=== PATIENT | female | born 1950 | race Caucasian/White ===

== ENCOUNTER → 2019-05-22 09:04 | Outpatient (BNVA) | payer MEDICARE, SELFPAY | PROVIDERS: Family Provider Nurse Practitioner; PCP Nurse Practitioner; Visit Provider Nurse Practitioner | DX: I10 Essential (primary) hypertension (principal); E78.5 Hyperlipidemia, unspecified; E03.8 Other specified hypothyroidism; E55.9 Vitamin D deficiency, unspecified; R25.2 Cramp and spasm | CPT/HCPCS: 80053; 80061; 82306; 84443; 85651 ==

== ENCOUNTER → 2019-08-18 14:21 | Outpatient (BNVA) | payer MEDICARE, SELFPAY | PROVIDERS: Family Provider Nurse Practitioner; PCP Nurse Practitioner; Visit Provider Orthopaedic Surgery | DX: M17.0 Bilateral primary osteoarthritis of knee (principal) | CPT/HCPCS: 73560; 73565 ==

== ENCOUNTER → 2019-08-20 10:20 | Outpatient (BNVA) | payer MEDICARE, SELFPAY | PROVIDERS: Family Provider Nurse Practitioner; PCP Nurse Practitioner; Visit Provider Nurse Practitioner | DX: I10 Essential (primary) hypertension (principal); E03.8 Other specified hypothyroidism; Z98.61 Coronary angioplasty status; J44.9 Chronic obstructive pulmonary disease, unspecified; M25.50 Pain in unspecified joint | CPT/HCPCS: 80053; 80061; 84443; 85025 ==

== ENCOUNTER → 2019-09-18 09:54 | Outpatient (BNVA) | payer MEDICARE, SELFPAY | PROVIDERS: Family Provider Nurse Practitioner; PCP Nurse Practitioner; Visit Provider Nurse Practitioner | DX: I10 Essential (primary) hypertension (principal); M25.50 Pain in unspecified joint | CPT/HCPCS: 80053 ==

== ENCOUNTER → 2019-11-16 09:18 | Outpatient (BNVA) | payer MEDICARE, SELFPAY | PROVIDERS: Family Provider Nurse Practitioner; PCP Nurse Practitioner; Visit Provider Nurse Practitioner | DX: K59.01 Slow transit constipation (principal); K59.09 Other constipation; E03.8 Other specified hypothyroidism; I10 Essential (primary) hypertension; J44.9 Chronic obstructive pulmonary disease, unspecified; Z98.61 Coronary angioplasty status; E78.2 Mixed hyperlipidemia; M25.50 Pain in unspecified joint; J30.89 Other allergic rhinitis; I25.10 Atherosclerotic heart disease of native coronary artery without angina pectoris; Z68.24 Body mass index [BMI] 24.0-24.9, adult; F17.210 Nicotine dependence, cigarettes, uncomplicated; Z71.89 Other specified counseling | CPT/HCPCS: 74018; 80053; 80061; 84443 ==

== ENCOUNTER → 2020-02-08 14:02 | Outpatient (BNVA) | payer MEDICARE, SELFPAY | PROVIDERS: Family Provider Nurse Practitioner; PCP Nurse Practitioner; Visit Provider Nurse Practitioner | DX: M25.511 Pain in right shoulder (principal) | CPT/HCPCS: 73030 ==

== ENCOUNTER → 2020-03-01 11:07 | Outpatient (BNVA) | payer MEDICARE, SELFPAY | PROVIDERS: Family Provider Nurse Practitioner; PCP Nurse Practitioner; Visit Provider Nurse Practitioner | DX: J44.9 Chronic obstructive pulmonary disease, unspecified (principal); I10 Essential (primary) hypertension; J30.89 Other allergic rhinitis | CPT/HCPCS: 80048 ==

== ENCOUNTER 2020-03-24 10:01 | Outpatient (CLI) | payer MEDICARE, SELFPAY ==
[2020-03-24 10:28] LABS: Basophils % 0.5 %; Eosinophils # 0.6 10^3/uL (0.0-0.8); Eosinophils % 8.1 %; Hematocrit 38.9 % (37.0-47.0); Hemoglobin 12.7 g/dL (11.5-15.3); Lymphocytes # 1.4 10^3/uL (0.8-4.8); Lymphocytes % 18.1 %; Mean Corpuscular HGB Conc 32.6 g/dL (30.0-36.0); Mean Corpuscular Hemoglobin 29.7 pg (28.0-34.0); Mean Corpuscular Volume 90.9 fL (81-99); Monocytes # 0.6 10^3/uL (0.2-0.9); Monocytes % 7.9 %; Nucleated Red Blood Cells % 0 %; Platelet Count 470 10^3/cmm (130-400); Red Blood Count 4.28 10^6/uL (4.1-5.3); Red Cell Distribution Width 13.2 % (12.1-15.1); White Blood Count 7.6 10^3/uL (4.0-10.0)
[2020-03-28 10:18] LABS: Immunoglobulin E 563 kU/L (<OR=114)
== END 2020-03-24 10:02 | disposition home or self-care (01) ==
PROVIDERS: PCP Nurse Practitioner; Visit Provider Internal Medicine Critical Care Medicine
DX: J45.909 Unspecified asthma, uncomplicated (principal); J44.9 Chronic obstructive pulmonary disease, unspecified; R06.02 Shortness of breath
CPT/HCPCS: 36415; 82785; 85025

== ENCOUNTER 2020-04-01 11:41 | Outpatient (CLI) | payer MEDICARE, SELFPAY | END 2020-04-01 11:42 | disposition home or self-care (01) | LOC: LAB 01-06 12:39 | PROVIDERS: PCP Family Medicine; Visit Provider Internal Medicine Critical Care Medicine | DX: J45.909 Unspecified asthma, uncomplicated (principal); Z20.828 Contact with and (suspected) exposure to other viral communicable diseases | CPT/HCPCS: 87635 ==

== ENCOUNTER 2020-04-06 08:48 | Outpatient (CLI) | payer MEDICARE, SELFPAY ==
--- NOTE | 2020-04-06 14:36 | PFTS_ITS ---
Date of Study:04/06/20 Date of Dictation: 04/07/2020 MECHANICS: Forced vital capacity (FVC) is normal. Forced expiratory volume in one second (FEV1) is normal. FEV1/FVC is reduced. FLOW VOLUME LOOP: Scooping of expiratory limb suggestive of obstructive airway disease . LUNG VOLUMES: Total lung capacity (TLC) is increased. Residual volume (RV) is increased suggestive of severe air trapping. DIFFUSING CAPACITY FOR CARBON MONOXIDE: Normal . INTERPRETATION: The pulmonary function tests are consistent with obstructive ventilatory disease with significant air trapping. Normal gas transfer. No significant response to bronchodilators. Please correlate clinically. MTDD
== END 2020-04-06 08:49 | disposition home or self-care (01) ==
PROVIDERS: PCP Nurse Practitioner; Visit Provider Internal Medicine Critical Care Medicine
DX: J44.9 Chronic obstructive pulmonary disease, unspecified (principal)
CPT/HCPCS: 94060; 94726; 94729; J7611

== ENCOUNTER 2020-04-11 11:04 | Outpatient (CLI) | payer MEDICARE, SELFPAY ==
--- NOTE | 2020-04-11 11:25 | CT_ITS ---
WS: [id number] LDCT LUNG CANCER SCREENING TECHNIQUE: Noncontrast CT of the chest with coronal and sagittal reformatted images. CLINICAL INFORMATION: NICOTINE DEPENDENCE,CIGARETTES COMPARISON: CT chest 10 30,016 DLP: 56.17 mGy.cm DIvol: 1.[address] scans at [facility] use at least one of these dose optimization techniques: automat ed exposure control; mA and/or kV adjustment per patient size (includes targeted exams where dose is matched to clinical indication); or iterative reconstruction. FINDINGS: Moderate chronic emphysematous changes. Subsegmental atelectasis with fibrosis in the right middle lo be. Bronchiectasis right middle lobe. No focal pneumonia pleural fluid. Noncalcified nodule left hilu m measuring 5.6 mm appears relatively stable since 2015 considering differences in technique. Recomme nd 6 month follow-up to document stability. No other suspicious parenchymal abnormalities. No mediastinal or hilar lymphadenopathy. Aortic calcification. Coronary calcification. No axillary ly mphadenopathy. Adrenal glands are normal. Small esophageal hiatal hernia. Cholecystectomy. CT/CT lung screening [id number] IMPRESSION: LUNG-RADS: 3-Probably Benign FOLLOW UP: 6 Month LDCT
== END 2020-04-11 11:05 | disposition home or self-care (01) ==
LOC: CT 11:18
PROVIDERS: PCP Nurse Practitioner; Visit Provider Internal Medicine Critical Care Medicine
DX: Z12.2 Encounter for screening for malignant neoplasm of respiratory organs (principal); F17.210 Nicotine dependence, cigarettes, uncomplicated; J98.11 Atelectasis; I70.0 Atherosclerosis of aorta
CPT/HCPCS: G0297

== ENCOUNTER → 2020-04-19 10:20 | Outpatient (BNVA) | payer MEDICARE, SELFPAY | PROVIDERS: PCP Nurse Practitioner; Visit Provider Nurse Practitioner | DX: J44.9 Chronic obstructive pulmonary disease, unspecified (principal); J45.909 Unspecified asthma, uncomplicated; E04.1 Nontoxic single thyroid nodule; Z98.61 Coronary angioplasty status; I10 Essential (primary) hypertension; H10.12 Acute atopic conjunctivitis, left eye; J30.9 Allergic rhinitis, unspecified; M25.50 Pain in unspecified joint; E55.9 Vitamin D deficiency, unspecified | CPT/HCPCS: 81003; 82306; 84443; 85025 ==

== ENCOUNTER → 2020-05-12 16:30 | Outpatient (BNVA) | payer MEDICARE, SELFPAY | PROVIDERS: PCP Nurse Practitioner; Visit Provider Nurse Practitioner | DX: K21.9 Gastro-esophageal reflux disease without esophagitis (principal); R06.02 Shortness of breath | CPT/HCPCS: 82785; 86003 ==

== ENCOUNTER → 2020-06-09 10:42 | Outpatient (BNVA) | payer MEDICARE, SELFPAY | PROVIDERS: PCP Nurse Practitioner; Visit Provider Family Medicine | DX: J44.9 Chronic obstructive pulmonary disease, unspecified (principal) | CPT/HCPCS: 71046 ==

== ENCOUNTER → 2020-08-01 14:11 | Outpatient (BNVA) | payer MEDICARE, SELFPAY | PROVIDERS: PCP Nurse Practitioner; Visit Provider Nurse Practitioner | DX: M79.7 Fibromyalgia (principal); J44.9 Chronic obstructive pulmonary disease, unspecified; J30.9 Allergic rhinitis, unspecified; I10 Essential (primary) hypertension; E03.8 Other specified hypothyroidism; M25.50 Pain in unspecified joint; J30.89 Other allergic rhinitis; T14.8XXA Other injury of unspecified body region, initial encounter; E78.5 Hyperlipidemia, unspecified; E55.9 Vitamin D deficiency, unspecified; H61.22 Impacted cerumen, left ear; I25.10 Atherosclerotic heart disease of native coronary artery without angina pectoris; X58.XXXA Exposure to other specified factors, initial encounter | CPT/HCPCS: 80053; 80061; 82306; 84443 ==

== ENCOUNTER → 2020-09-07 09:29 | Outpatient (BNVA) | payer MEDICARE, SELFPAY | PROVIDERS: PCP Nurse Practitioner; Visit Provider Nurse Practitioner | DX: M85.88 Other specified disorders of bone density and structure, other site (principal); M47.896 Other spondylosis, lumbar region; M47.894 Other spondylosis, thoracic region; M54.5 Low back pain; M54.6 Pain in thoracic spine | CPT/HCPCS: 72072; 72100 ==

== ENCOUNTER → 2020-09-21 09:08 | Outpatient (BNVA) | payer MEDICARE, SELFPAY | PROVIDERS: PCP Nurse Practitioner; Visit Provider Nurse Practitioner | DX: J44.9 Chronic obstructive pulmonary disease, unspecified (principal); I70.0 Atherosclerosis of aorta | CPT/HCPCS: 71046 ==

== ENCOUNTER → 2020-11-07 09:55 | Outpatient (BNVA) | payer OTHER, MEDICARE, SELFPAY | PROVIDERS: PCP Family Medicine; Referring Provider Family Medicine; Visit Provider Anesthesiology Pain Medicine | DX: M51.36 Other intervertebral disc degeneration, lumbar region (principal); M47.816 Spondylosis without myelopathy or radiculopathy, lumbar region; M79.604 Pain in right leg; M79.605 Pain in left leg; F17.210 Nicotine dependence, cigarettes, uncomplicated | CPT/HCPCS: 99205 ==

== ENCOUNTER → 2020-11-28 13:12 | Outpatient (BNVA) | payer OTHER, SELFPAY | PROVIDERS: PCP Family Medicine; Visit Provider Anesthesiology Pain Medicine | DX: M47.816 Spondylosis without myelopathy or radiculopathy, lumbar region (principal); M51.36 Other intervertebral disc degeneration, lumbar region; M79.604 Pain in right leg; M79.605 Pain in left leg; Z79.891 Long term (current) use of opiate analgesic | CPT/HCPCS: 99214 ==

== ENCOUNTER → 2020-12-26 09:43 | Outpatient (BNVA) | payer MEDICARE, SELFPAY | PROVIDERS: PCP Family Medicine; Visit Provider Anesthesiology Pain Medicine | DX: M47.816 Spondylosis without myelopathy or radiculopathy, lumbar region (principal); M51.36 Other intervertebral disc degeneration, lumbar region; M79.604 Pain in right leg; M79.605 Pain in left leg; F17.210 Nicotine dependence, cigarettes, uncomplicated; Z79.891 Long term (current) use of opiate analgesic | CPT/HCPCS: 99213; 99214 ==

== ENCOUNTER 2021-01-23 13:04 | Outpatient (CLI) | payer MEDICARE, SELFPAY ==
--- NOTE | 2021-01-23 13:45 | MR_ITS ---
WS: [id number] MRI LUMBAR SPINE NONCONTRAST TECHNIQUE: Sagittal T1, T2 and STIR imaging. Axial T1 and T2 imaging. CLINICAL INFORMATION: M51.36 - Other intervertebral disc degeneration, lumbar r... COMPARISON: None. FINDINGS: Mild lumbar curve. No acute compression. Mild disc bulging throughout the lumbar spine worse at L4-5 with moderate central canal stenosis. L1-L2: Mild disc bulging with slight impingement on the left subarticular recess. Mild facet arthropa thy. Foramen are patent. L2-L3: Mild annular bulging with mild central canal stenosis. Impingement subarticular recess bilater ally and traversing L3 nerve roots. Mild facet arthropathy.Mild right foraminal narrowing. L3-L4: Mild disc bulging with mild central canal stenosis. Impingement traversing L4 nerve roots bila terally. Mild facet arthropathy.Small right foraminal protrusion with mild right foraminal narrowing. Left foramen is patent. L4-L5: Mild disc bulging with impingement on the subarticular recess bilaterally and traversing L5 ne rve roots. Moderate central canal stenosis. Moderate facet arthropathy with ligament flavum hypertrop hy. Moderate bilateral foraminal narrowing. L5-S1: Mild annular bulging. Slight effacement of ventral thecal sac. Moderate facet arthropathy. Mil d right and no left foraminal narrowing. Right renal cyst measuring 2.3 CM. Slight anterolisthesis C3 on C4 in the cervical spine credit verification clerk imagin g. Visualized pelvic bony structures: Normal. Paravertebral soft tissues: Normal. MR/MR lumbar spine wo con* [id number] IMPRESSION: 1. Mild lumbar curve. No acute compression. 2. Moderate central canal stenosis L4-5 due to disc bulging with facet arthrop athy and ligamentum flavum flavum hypertrophy. Impingement traversing L5 nerve roots bilaterally. 3. Moderate bilateral L4-5 foraminal narrowing. 4. Mild central canal stenosis L2-3 and L3-4 with narrowing of the subarticula r recess. 5. Mild right L3-4 and right L5-S1 foraminal narrowing. 6. Moderate facet arthropathy L4-L5 and L5-S1.
== END 2021-01-23 13:05 | disposition home or self-care (01) ==
PROVIDERS: PCP Family Medicine; Visit Provider Anesthesiology Pain Medicine
DX: M51.36 Other intervertebral disc degeneration, lumbar region (principal); M47.816 Spondylosis without myelopathy or radiculopathy, lumbar region; M47.817 Spondylosis without myelopathy or radiculopathy, lumbosacral region; M48.061 Spinal stenosis, lumbar region without neurogenic claudication; E55.9 Vitamin D deficiency, unspecified; I10 Essential (primary) hypertension; E03.8 Other specified hypothyroidism; J43.9 Emphysema, unspecified
CPT/HCPCS: 72148; 80053; 80061; 82306; 84443

== ENCOUNTER → 2021-01-30 09:26 | Outpatient (BNVA) | payer MEDICARE, SELFPAY | PROVIDERS: PCP Family Medicine; Visit Provider Anesthesiology Pain Medicine | DX: M51.36 Other intervertebral disc degeneration, lumbar region (principal); M47.816 Spondylosis without myelopathy or radiculopathy, lumbar region; M79.604 Pain in right leg; M79.605 Pain in left leg; I10 Essential (primary) hypertension; E78.5 Hyperlipidemia, unspecified; Z79.891 Long term (current) use of opiate analgesic | CPT/HCPCS: 99214 ==

== ENCOUNTER → 2021-02-13 12:42 | Outpatient (BNVA) | payer MEDICARE, SELFPAY | PROVIDERS: PCP Family Medicine; Visit Provider Anesthesiology Pain Medicine | DX: M51.16 Intervertebral disc disorders with radiculopathy, lumbar region (principal); F17.210 Nicotine dependence, cigarettes, uncomplicated; Z79.891 Long term (current) use of opiate analgesic | CPT/HCPCS: 62323; 64483; 64484; J1100; J3490 ==

== ENCOUNTER → 2021-02-27 13:30 | Outpatient (BNVA) | payer MEDICARE, SELFPAY | PROVIDERS: PCP Family Medicine; Visit Provider Anesthesiology Pain Medicine | DX: M54.16 Radiculopathy, lumbar region (principal); F17.210 Nicotine dependence, cigarettes, uncomplicated; Z79.891 Long term (current) use of opiate analgesic | CPT/HCPCS: 64483; 64484; J1100; J3490 ==

== ENCOUNTER → 2021-03-23 10:54 | Outpatient (BNVA) | payer MEDICARE, SELFPAY | PROVIDERS: PCP Family Medicine; Visit Provider Anesthesiology Pain Medicine | DX: M51.36 Other intervertebral disc degeneration, lumbar region (principal); M47.816 Spondylosis without myelopathy or radiculopathy, lumbar region; M79.604 Pain in right leg; M79.605 Pain in left leg; Z79.891 Long term (current) use of opiate analgesic | CPT/HCPCS: 99214 ==

== ENCOUNTER → 2021-05-22 17:00 | Outpatient (BNVA) | payer MEDICARE, SELFPAY | PROVIDERS: PCP Family Medicine; Visit Provider Family Medicine | DX: R05.9 Cough, unspecified (principal); R43.2 Parageusia; J01.90 Acute sinusitis, unspecified | CPT/HCPCS: 87635 ==

== ENCOUNTER → 2021-06-19 10:50 | Outpatient (BNVA) | payer MEDICARE, SELFPAY | PROVIDERS: PCP Family Medicine; Visit Provider Anesthesiology Pain Medicine | DX: M51.36 Other intervertebral disc degeneration, lumbar region (principal); M47.816 Spondylosis without myelopathy or radiculopathy, lumbar region; M79.604 Pain in right leg; M79.605 Pain in left leg; F17.210 Nicotine dependence, cigarettes, uncomplicated | CPT/HCPCS: 99214 ==

== ENCOUNTER → 2021-06-20 14:49 | Outpatient (BNVA) | payer MEDICARE, SELFPAY | PROVIDERS: PCP Family Medicine; Visit Provider Internal Medicine | DX: Z53.9 Procedure and treatment not carried out, unspecified reason (principal) ==

== ENCOUNTER → 2021-06-26 12:00 | Outpatient (BNVA) | payer MEDICARE, SELFPAY | PROVIDERS: PCP Family Medicine; Visit Provider Internal Medicine | DX: I25.10 Atherosclerotic heart disease of native coronary artery without angina pectoris (principal); R06.00 Dyspnea, unspecified; I10 Essential (primary) hypertension; R01.1 Cardiac murmur, unspecified; R06.02 Shortness of breath; F17.210 Nicotine dependence, cigarettes, uncomplicated | CPT/HCPCS: 99214 ==

== ENCOUNTER → 2021-07-18 13:39 | Outpatient (BNVA) | payer MEDICARE, SELFPAY | PROVIDERS: PCP Family Medicine; Visit Provider Anesthesiology Pain Medicine | DX: M54.16 Radiculopathy, lumbar region (principal); F17.210 Nicotine dependence, cigarettes, uncomplicated | CPT/HCPCS: 64483; 64484; J1100; J3490 ==

== ENCOUNTER → 2021-08-01 10:15 | Outpatient (BNVA) | payer MEDICARE, SELFPAY | PROVIDERS: PCP Family Medicine; Visit Provider Anesthesiology Pain Medicine | DX: M51.36 Other intervertebral disc degeneration, lumbar region (principal); M47.816 Spondylosis without myelopathy or radiculopathy, lumbar region; M79.604 Pain in right leg; M79.605 Pain in left leg; F17.210 Nicotine dependence, cigarettes, uncomplicated | CPT/HCPCS: 99214 ==

== ENCOUNTER 2021-10-03 09:37 | Outpatient (CLI) | payer MEDICARE, SELFPAY ==
--- NOTE | 2021-10-03 09:48 | MM_ITS ---
WS: [id number] SCREENING DIGITAL BREAST TOMOSYNTHESIS MAMMOGRAM WITH CAD HISTORY: SCREEN COMPARISON: 09/05/2017 Bilateral CC and MLO with tomosynthesis views submitted. Synthetic mammography reviewed. Computer aid ed detection analyzed. Breast composition: There are scattered areas of fibroglandular density. No suspicious masses, microc alcifications or architectural distortion. MM/[place] [id number] IMPRESSION: BI-RADS: 1-Negative FOLLOW UP: 1 Year Follow-up
== END 2021-10-03 09:38 | disposition home or self-care (01) ==
LOC: RAD 09:40
PROVIDERS: PCP Family Medicine; Visit Provider Family Medicine
DX: Z12.31 Encounter for screening mammogram for malignant neoplasm of breast (principal)
CPT/HCPCS: 77063; 77067

== ENCOUNTER → 2021-10-31 10:39 | Outpatient (BNVA) | payer MEDICARE, SELFPAY | PROVIDERS: PCP Family Medicine; Visit Provider Anesthesiology Pain Medicine | DX: M51.36 Other intervertebral disc degeneration, lumbar region (principal); M47.816 Spondylosis without myelopathy or radiculopathy, lumbar region; M79.604 Pain in right leg; M79.605 Pain in left leg; F17.210 Nicotine dependence, cigarettes, uncomplicated | CPT/HCPCS: 99214 ==

== ENCOUNTER 2021-11-13 09:37 | Outpatient (CLI) | payer MEDICARE, SELFPAY ==
--- NOTE | 2021-11-13 | ECG_ITS ---
[facility] Test Date: 2021-11-13 Pat Name: Sarah Banks Department: Room: Gender: Female Laboratory Assistant: : 1950 Requested By: Ciro Lauren Order Number: [id number] Moshe MD: Ciro Lauren M.D. Interpretive Statements NAME OF STUDY: LEXISCAN SESTAMIBI STRESS TEST INDICATION: [dalton] Procedure: At the baseline, the blood pressure was 153/71 mmHg with a heart rate of 61 bpm. The electrocardiogram showed normal sinus rhythm, normal axis with normal ST and T's. The Lexiscan was infused over a period of 20 seconds. A total of 0.4 mg of Lexiscan was infused. The stress phase was continued for a total of 5 minutes. Heart rate was at the end of stress phase was 84 bpm and a blood pressure of 166/73 mmHg. The EKG at the peak infusion revealed normal sinus rhythm with no significant ST-T wave changes. Sestamibi was injected 20 seconds after the Lexiscan infusion. Blood pressure at the end of recovery phase was 165/73mmHg with a heart rate of 80 bpm. Conclusion: 1. Normal EKG response to Lexiscan infusion 2. No Lexiscan induced chest pain or cardiac arrhythmia. 3. Normal blood pressure and heart rate response. 4. Sestamibi/sestamibi perfusion scan pending; see separate report. Electronically Signed On 12-03-2021 23:45:43 CDT by Ciro Lauren M.D. [id number]
[2021-11-13 09:55] VITALS: BMI 21.7
--- NOTE | 2021-11-13 09:57 | NMCV_ITS ---
NM john perf SPECT r/s* [id number] Sarah Banks Age: 71 Gender: F : 1950 Exam Date: 11/13/2021 10:47 Ordering Phys: Ciro Lauren M.D ([email or web address]) Technologist: STEVE Dean Exam Location: [facility] Indications: DYSPNEA STRESS TEST [facility] IMAGE PROTOCOL Rest/Stress 1 Lexiscan Day Radiopharmaceutical Dose (mCi) Administration Site Administered by Rest: Tc-99m 10.8 IV STEVE Solis Sestamibi Stress:Tc-99m 32.6 IV STEVE Solis Sestamibi Rest: 13-Nov-2021 60 Discovery 630 Stress: 13-Nov-2021 30 Discovery 630 0.4mg Lexiscan. Images obtained in supine and prone position. SPECT RESULTS Technical Quality: Excellent Raw Data Analysis: Normal Image Corrections: No attenuation or motion correction applied Summed Stress Score: 4 Summed Rest Score: 0 Summed Difference Score: 4 PERFUSION FINDINGS There is a medium sized, moslty fixed perfusion defect noted in the apical inferior and inferior eldridge. This is consistent with medium sized prior infarct with small area of antonio-infarct ischemia. FUNCTIONAL RESULTS (calculated via Gated SPECT) Stress Image LV EF (%): 69 Stress EDV (mL):106 TID: 0.98 Stress ESV (mL):33 FUNCTIONAL FINDINGS: There is normal left ventricular systolic function. IMPRESSIONS 1. Abnormal myocardial perfusion imaging with medium sized prior infarct seen in the RCA territory with small area of antonio-infarct ischemia 2. LV systolic function is normal Ciro Lauren MD (Electronically Signed) Final Date: 20 November 2021 09:34 S
[2021-11-13] MEDS: regadenoson 0.4 Mg/5 ml Syringe IVP (11:14)
[2021-11-13 11:33] VITALS: BP 165/73; PULSE 81
== END 2021-11-13 09:38 | disposition home or self-care (01) ==
LOC: CDL 09:40
PROVIDERS: PCP Family Medicine; Visit Provider Internal Medicine
DX: R06.00 Dyspnea, unspecified (principal); R06.02 Shortness of breath
CPT/HCPCS: 78452; 93017; A9500; J2785

== ENCOUNTER → 2021-12-06 12:45 | Outpatient (BNVA) | payer MEDICARE, SELFPAY | PROVIDERS: PCP Family Medicine; Visit Provider Anesthesiology Pain Medicine | DX: F17.210 Nicotine dependence, cigarettes, uncomplicated (principal); M54.16 Radiculopathy, lumbar region | CPT/HCPCS: 64483; 64484 ==

== ENCOUNTER → 2021-12-08 14:14 | Outpatient (BNVA) | payer MEDICARE, SELFPAY | PROVIDERS: PCP Family Medicine; Visit Provider Nurse Practitioner Family | DX: J44.1 Chronic obstructive pulmonary disease with (acute) exacerbation (principal); Z20.822 Contact with and (suspected) exposure to COVID-19 | CPT/HCPCS: 87426 ==

== ENCOUNTER → 2021-12-20 10:46 | Outpatient (BNVA) | payer MEDICARE, SELFPAY | PROVIDERS: PCP Family Medicine; Visit Provider Anesthesiology Pain Medicine | DX: M51.36 Other intervertebral disc degeneration, lumbar region (principal); M47.816 Spondylosis without myelopathy or radiculopathy, lumbar region; M79.604 Pain in right leg; M79.605 Pain in left leg; F17.210 Nicotine dependence, cigarettes, uncomplicated | CPT/HCPCS: 99214 ==

== ENCOUNTER → 2022-01-12 11:32 | Outpatient (BNVA) | payer MEDICARE, SELFPAY | PROVIDERS: PCP Family Medicine; Visit Provider Family Medicine | DX: R05.9 Cough, unspecified (principal); J98.4 Other disorders of lung | CPT/HCPCS: 71046 ==

== ENCOUNTER → 2022-01-16 10:44 | Outpatient (BNVA) | payer MEDICARE, SELFPAY | PROVIDERS: PCP Family Medicine; Visit Provider Anesthesiology Pain Medicine | DX: M51.36 Other intervertebral disc degeneration, lumbar region (principal); M47.816 Spondylosis without myelopathy or radiculopathy, lumbar region; M79.604 Pain in right leg; M79.605 Pain in left leg; F17.210 Nicotine dependence, cigarettes, uncomplicated | CPT/HCPCS: 99213; 99214 ==

== ENCOUNTER → 2022-02-06 11:11 | Outpatient (BNVA) | payer MEDICARE, SELFPAY | PROVIDERS: PCP Family Medicine; Visit Provider Internal Medicine Cardiovascular Disease | DX: I10 Essential (primary) hypertension (principal); I25.10 Atherosclerotic heart disease of native coronary artery without angina pectoris; I77.819 Aortic ectasia, unspecified site; E78.5 Hyperlipidemia, unspecified; M79.7 Fibromyalgia; J43.9 Emphysema, unspecified; F17.210 Nicotine dependence, cigarettes, uncomplicated | CPT/HCPCS: 99213; 99214 ==

== ENCOUNTER 2022-03-27 10:58 | Outpatient (CLI) | payer MEDICARE, SELFPAY ==
--- NOTE | 2022-03-27 11:00 | USCV_ITS ---
Sarah Banks Age: 72 Gender: F : 1950 Exam Date: 03/27/2022 11:35 Ordering Phys: Ciro Lauren M.D ([email or web address]) Technologist: Amrit Paz [place] [facility] [place]ication: murmur BP: 130 / 68 HR: 65 Rhythm: Sinus Technical Quality: Adequate MEASUREMENTS (Male / Female) Normal Values 2D ECHO LV Diastolic Diameter PLAX 3.5 cm 4.2 - 5.9 / 3.9 - 5.3 cm LV Systolic Diameter PLAX 2.2 cm IVS Diastolic Thickness 0.8 cm 0.6 - 1.0 / 0.6 - 0.9 cm IVS Systolic Thickness 0.7 cm LVPW Diastolic Thickness 0.7 cm 0.6 - 1.0 / 0.6 - 0.9 cm LVPW Systolic Thickness 0.9 cm LVOT Diameter 2.0 cm LV Ejection Fraction 2D Teich 69.7 % LV Ejection Fraction MOD 2C 71.3 % LV Ejection Fraction 2C AL 70.8 % LA Diameter 3.2 cm LA Width 2.7 cm LA Height 3.8 cm RA Width 2.3 cm RA Height 3.8 cm Aorta at Sinotubular Diameter 2.0 cm IVC Diameter 1.9 cm M-MODE Aortic Annulus Diameter 2.7 cm LA Ao Ratio MM 1.1 MV E Point Septal Separation 0.8 cm DOPPLER AV Peak Velocity 191.5 cm/s LVOT Peak Velocity 185.0 cm/s AV Area Cont Eq vti 2.2 cm squared AV Area Cont Eq pk 3.1 cm squared MV Area PHT 4.1 cm squared Mitral E to A Ratio 0.7 MV E' Velocity 35.5 cm/s Mitral E to MV E' Ratio 9.4 Mitral E to LV E' Lateral Ratio 9.4 Mitral E to LV E' Septal Ratio 9.6 TR Peak Velocity 307.8 cm/s TR Peak Gradient 37.9 mmHg TR Mean Velocity 235.3 cm/s TR Mean Gradient 23.9 mmHg TR Velocity Time Integral 82.1 cm Right Atrial Pressure 3.0 mmHg Pulmonary Artery Systolic Pressu 40.9 mmHg PV Peak Velocity 93.0 cm/s RV Acceleration Time 0.1 s RV Ejection Time 0.3 s RV AcT/ET 0.4 FINDINGS Left Ventricle Left ventricle is normal in size. LV systolic function is normal with EF of 55 to 60%. No regional wall motion abnormalities. Grade 1 diastolic dysfunction Right Ventricle Normal in size and function Right Atrium Arlet in size Left Atrium Normal in size Mitral Valve Structurally normal mitral valve. Mild mitral regurgitation. Aortic Valve Aortic valve is thickened. Mild aortic stenosis. Aortic valve area is 2cm2 and mean gradient across aortic valve of 10mmHg. Moderate aortic regurgitation. Tricuspid Valve Mild tricuspid regurgitation. RVSP is 35 to 40 mmHg. This is consistent with mild pulmonary hypertension Pulmonic Valve Trace pulmonic regurgitation Pericardium Normal Aorta Normal in size IVC Appears to be normal CONCLUSIONS LV systolic function is normal with EF of 55 to 60%. Grade 1 diastolic dysfunction Mild mitral regurgitation Mild aortic stenosis. Aortic valve area is 2cm2 and mean gradient across aortic valve of 10mmHg. Moderate aortic regurgitation. Mild tricuspid regurgitation. Mild pulmonary hypertension Trace pulmonic regurgitation Compared to prior echocardiogram from 2016, patient has mild aortic stenosis, mild pulmonary hypertension and moderate aortic regurgitation now. Ciro Lauren MD (Electronically Signed) Final Date: 08 April 2022 11:06 S
== END 2022-03-27 10:59 | disposition home or self-care (01) ==
LOC: RAD 10:59
PROVIDERS: PCP Family Medicine; Visit Provider Internal Medicine
DX: R01.1 Cardiac murmur, unspecified (principal); R06.00 Dyspnea, unspecified; I35.0 Nonrheumatic aortic (valve) stenosis; I27.20 Pulmonary hypertension, unspecified; I34.0 Nonrheumatic mitral (valve) insufficiency; I07.1 Rheumatic tricuspid insufficiency
CPT/HCPCS: 93306

== ENCOUNTER → 2022-04-12 14:21 | Outpatient (BNVA) | payer MEDICARE, SELFPAY | PROVIDERS: PCP Family Medicine; Visit Provider Family Medicine | DX: I10 Essential (primary) hypertension (principal); E03.8 Other specified hypothyroidism; E78.5 Hyperlipidemia, unspecified | CPT/HCPCS: 80053; 80061; 84443; 85025 ==

== ENCOUNTER → 2022-05-01 10:47 | Outpatient (BNVA) | payer MEDICARE, SELFPAY | PROVIDERS: PCP Family Medicine; Visit Provider Nurse Practitioner Family | DX: M17.0 Bilateral primary osteoarthritis of knee (principal) | CPT/HCPCS: 20610; 73560; 73565; 99214 ==

== ENCOUNTER 2022-06-14 11:54 | Outpatient (CLI) | payer MEDICARE, SELFPAY ==
--- NOTE | 2022-06-14 12:23 | CT_ITS ---
WS: [id number] CT CHEST WITHOUT INTRAVENOUS CONTRAST HISTORY: Swelling, mass Lump, trunk/mass ON CHEST WALL TECHNIQUE: Contiguous 5 mm axial imaging performed on the thorax. Coronal and sagittal reformats are submitted. All CT scans at [facility] use at least one of these dose optimization techniques: automated exposure control; mA and/or kV adjustment per patient size (includes targeted exams where dose is matched to clinical indication); or iterative reconstruction. CONTRAST: None DLP: 214.34 mGy.cm COMPARISON: 04/11/2020, 02/12/2016, 07/03/2013 Lungs and central airway: Hyperexpanded lungs with chronic emphysema. Stable round solid nodule in th e LEFT hilum. Nodule stable since 2013 and the intrapulmonary lymph node along the fissure. No new ma ss or nodule. No pneumonia. Pleura: Normal. No pleural effusion. Heart and pericardium: Normal size heart with no pericardial effusion. Mediastinum and perri: No mediastinum or hilar adenopathy. Vessels: Moderate atherosclerosis aorta. Ectatic aorta with no aneurysm. Pulmonary artery size is nor mal. Moderate coronary artery atherosclerosis. Chest wall and lower neck: Subcentimeter LEFT thyroid nodules. No chest wall abnormalities identified . No mass is identified. Upper abdomen: Suprarenal atherosclerosis aorta. Prior cholecystectomy. Splenic artery calcifications . Osseous structures: Increase in thoracic kyphosis. CT/CT chest wo con [id number] IMPRESSION: 1. No chest wall mass is identified by CT. If further imaging evaluation is ne cessary ultrasound may provide additional information. 2. Chronic emphysema. 3. Long-term stability 6 mm LEFT hilar nodule. 4. Moderate coronary artery atherosclerosis. 5. Prior cholecystectomy.
== END 2022-06-14 11:55 | disposition home or self-care (01) ==
LOC: RAD 12:01
PROVIDERS: PCP Family Medicine; Visit Provider Family Medicine
DX: R22.2 Localized swelling, mass and lump, trunk (principal); J43.9 Emphysema, unspecified
CPT/HCPCS: 71250

== ENCOUNTER → 2022-07-23 13:55 | Outpatient (BNVA) | payer MEDICARE, SELFPAY | PROVIDERS: PCP Family Medicine; Visit Provider Family Medicine | DX: J02.9 Acute pharyngitis, unspecified (principal) | CPT/HCPCS: 87071; 87880 ==

== ENCOUNTER → 2022-07-30 09:42 | Outpatient (BNVA) | payer MEDICARE, SELFPAY | PROVIDERS: PCP Family Medicine; Visit Provider Anesthesiology Pain Medicine | DX: M54.16 Radiculopathy, lumbar region (principal); M51.36 Other intervertebral disc degeneration, lumbar region; M47.816 Spondylosis without myelopathy or radiculopathy, lumbar region; R07.81 Pleurodynia | CPT/HCPCS: 99214 ==

== ENCOUNTER → 2022-08-03 09:14 | Outpatient (BNVA) | payer MEDICARE, SELFPAY | PROVIDERS: PCP Family Medicine; Visit Provider Family Medicine | DX: U07.1 COVID-19 (principal); R05.9 Cough, unspecified | CPT/HCPCS: 87400; 87426 ==

== ENCOUNTER 2022-08-21 09:25 | Outpatient (CLI) | payer MEDICARE, SELFPAY ==
--- NOTE | 2022-08-21 09:44 | US_ITS ---
WS: [id number] ULTRASOUND LEFT BREAST HISTORY: MASS IN LEFT BREAST, palpable area along the LEFT chest wall. Negative mammogram from [address] from 06/14/2022. COMPARISON: Mammogram 10/03/[address] 06/14/2022. TECHNIQUE: 2-D and Doppler. The palpable area along the LEFT chest wall corresponds to sternoclavicular joint osteoarthritic reddy ges. There is hypertrophy of the SC joint. This was also present on the CT exam. There is no chest wa ll mass identified. US/US breast LT limited* [id number] IMPRESSION: BI-RADS: 2-Benign FOLLOW-UP: See Report Patient to return for screening mammogram in September 2022. Patient refused diagnos tic mammogram today.
== END 2022-08-21 09:26 | disposition home or self-care (01) ==
PROVIDERS: PCP Family Medicine; Visit Provider Family Medicine
DX: R22.2 Localized swelling, mass and lump, trunk (principal)
CPT/HCPCS: 71046; 76642

== ENCOUNTER 2022-11-22 09:31 | Oncology outpatient (recurring) (ONCR) | payer MEDICARE, SELFPAY ==
[2022-11-22 09:51] VITALS: BP 141/69; PULSE 77; RESP 16; TEMP 36.4; O2SAT 98
[2022-11-22] MEDS: Benralizumab *no charge* 30 mg/ml syringe SUBCUT (10:06)
== END 2022-12-13 23:59 | disposition home or self-care (01) ==
PROVIDERS: PCP Family Medicine; Visit Provider Internal Medicine Pulmonary Disease
DX: J45.50 Severe persistent asthma, uncomplicated (principal)
CPT/HCPCS: 96372

== ENCOUNTER → 2022-11-29 10:22 | Outpatient (BNVA) | payer MEDICARE, SELFPAY | PROVIDERS: PCP Family Medicine; Visit Provider Nurse Practitioner Family | DX: M17.0 Bilateral primary osteoarthritis of knee | CPT/HCPCS: 20610; 99213; J1100; J2795; J3301 ==

== ENCOUNTER → 2022-12-28 10:24 | Outpatient (BNVA) | payer MEDICARE, SELFPAY | PROVIDERS: PCP Family Medicine; Visit Provider Internal Medicine Cardiovascular Disease | DX: J45.50 Severe persistent asthma, uncomplicated (principal); J82.83 Eosinophilic asthma; I10 Essential (primary) hypertension; I25.10 Atherosclerotic heart disease of native coronary artery without angina pectoris; R06.00 Dyspnea, unspecified; I77.819 Aortic ectasia, unspecified site; E78.5 Hyperlipidemia, unspecified; I35.2 Nonrheumatic aortic (valve) stenosis with insufficiency; F17.210 Nicotine dependence, cigarettes, uncomplicated | CPT/HCPCS: 99214 ==

== ENCOUNTER → 2023-01-08 11:38 | Outpatient (BNVA) | payer MEDICARE, SELFPAY | PROVIDERS: PCP Family Medicine; Visit Provider Family Medicine | DX: R05.9 Cough, unspecified (principal); J01.00 Acute maxillary sinusitis, unspecified | CPT/HCPCS: 87426 ==

== ENCOUNTER → 2023-02-12 17:10 | Outpatient (BNVA) | payer MEDICARE, SELFPAY | PROVIDERS: PCP Family Medicine; Visit Provider Family Medicine | DX: E03.8 Other specified hypothyroidism (principal); E78.5 Hyperlipidemia, unspecified; I10 Essential (primary) hypertension | CPT/HCPCS: 80053; 80061; 84443; 85025 ==

== ENCOUNTER → 2023-02-19 16:26 | Outpatient (BNVA) | payer MEDICARE, SELFPAY | PROVIDERS: PCP Family Medicine; Visit Provider Family Medicine | DX: I70.90 Unspecified atherosclerosis (principal); R06.02 Shortness of breath | CPT/HCPCS: 71046 ==

== ENCOUNTER → 2023-03-05 14:23 | Outpatient (BNVA) | payer MEDICARE, SELFPAY | PROVIDERS: PCP Family Medicine; Visit Provider Family Medicine | DX: M54.50 Low back pain, unspecified (principal) | CPT/HCPCS: 81000 ==

== ENCOUNTER → 2023-03-14 12:13 | Outpatient (BNVA) | payer MEDICARE, SELFPAY | PROVIDERS: PCP Family Medicine; Visit Provider Family Medicine | DX: D64.9 Anemia, unspecified (principal) | CPT/HCPCS: 82607; 82728; 82746; 83540 ==

== ENCOUNTER → 2023-03-20 14:15 | Outpatient (BNVA) | payer MEDICARE, SELFPAY | PROVIDERS: PCP Family Medicine; Visit Provider Internal Medicine Pulmonary Disease | DX: J43.9 Emphysema, unspecified (principal); J45.50 Severe persistent asthma, uncomplicated; J30.9 Allergic rhinitis, unspecified; F17.210 Nicotine dependence, cigarettes, uncomplicated; K21.9 Gastro-esophageal reflux disease without esophagitis; J82.83 Eosinophilic asthma; M25.512 Pain in left shoulder | CPT/HCPCS: 73030 ==

== ENCOUNTER → 2023-04-01 17:12 | Outpatient (BNVA) | payer MEDICARE, SELFPAY | PROVIDERS: PCP Family Medicine; Visit Provider Family Medicine | DX: R30.0 Dysuria (principal) | CPT/HCPCS: 81003 ==

== ENCOUNTER → 2023-04-25 18:31 | Outpatient (BNVA) | payer MEDICARE, SELFPAY | PROVIDERS: PCP Family Medicine; Visit Provider Family Medicine | DX: N30.00 Acute cystitis without hematuria (principal) | CPT/HCPCS: 81003 ==

== ENCOUNTER → 2023-05-03 11:44 | Outpatient (BNVA) | payer MEDICARE, SELFPAY | PROVIDERS: PCP Family Medicine; Visit Provider Family Medicine | DX: J06.9 Acute upper respiratory infection, unspecified (principal) | CPT/HCPCS: 87426 ==

== ENCOUNTER → 2023-05-07 10:19 | Outpatient (BNVA) | payer MEDICARE, SELFPAY | PROVIDERS: PCP Family Medicine; Visit Provider Physician Assistant | DX: M17.0 Bilateral primary osteoarthritis of knee (principal) | CPT/HCPCS: 20610; 99213; J3301 ==

== ENCOUNTER → 2023-05-08 14:37 | Outpatient (BNVA) | payer MEDICARE, SELFPAY | PROVIDERS: PCP Family Medicine; Visit Provider Family Medicine | DX: M25.512 Pain in left shoulder (principal) | CPT/HCPCS: 73030 ==

== ENCOUNTER → 2023-05-23 10:33 | Outpatient (BNVA) | payer MEDICARE, SELFPAY | PROVIDERS: PCP Family Medicine; Visit Provider Physician Assistant | DX: M19.012 Primary osteoarthritis, left shoulder (principal); M75.42 Impingement syndrome of left shoulder | CPT/HCPCS: 20610; 99213; J3301 ==

== ENCOUNTER → 2023-06-24 13:26 | Outpatient (BNVA) | payer MEDICARE, SELFPAY | PROVIDERS: PCP Family Medicine; Visit Provider Family Medicine | DX: R05.9 Cough, unspecified (principal); R50.9 Fever, unspecified | CPT/HCPCS: 87426 ==

== ENCOUNTER 2023-07-03 09:41 | Outpatient (CLI) | payer MEDICARE, SELFPAY ==
--- NOTE | 2023-07-03 10:00 | CT_ITS ---
WS: [id number] LDCT LUNG CANCER SCREENING TECHNIQUE: Noncontrast CT of the chest with coronal and sagittal reformatted images. CLINICAL INFORMATION: F17.210 - Nicotine dependence, cigarettes, uncomplicated COMPARISON: CT chest 06/14/2022 DLP: 42.72 mGy.cm DIvol: Mean CTDIvol: 0.80 (mGy) All CT scans at [facility] use at least one of these dose optimization techniques: automat ed exposure control; mA and/or kV adjustment per patient size (includes targeted exams where dose is matched to clinical indication); or iterative reconstruction. FINDINGS: Chronic emphysematous changes. Hyperinflation. Fibrosis in the lung apices. Stable 6 mm nodule LEFT hilum. Aortic calcification. Coronary calcification. Prior cholecystectomy. No mediastinal or hilar lymphade nopathy. No axillary lymphadenopathy. Adrenal glands are normal. Moderate thoracic kyphosis. Mild tho racic curve. Chronic RIGHT rib fractures with callus formation. IMPRESSION: CT/CT lung screening [id number] LUNG-RADS: 2-Benign Appearance or Behavior FOLLOW UP: 12 Month: Continue annual screening with LDCT
== END 2023-07-03 09:42 | disposition home or self-care (01) ==
LOC: RAD 09:42
PROVIDERS: PCP Family Medicine; Visit Provider Internal Medicine Pulmonary Disease
DX: Z12.2 Encounter for screening for malignant neoplasm of respiratory organs (principal); F17.210 Nicotine dependence, cigarettes, uncomplicated; J43.9 Emphysema, unspecified; J84.10 Pulmonary fibrosis, unspecified
CPT/HCPCS: 71271

== ENCOUNTER → 2023-07-18 15:21 | Outpatient (BNVA) | payer MEDICARE, SELFPAY | PROVIDERS: PCP Family Medicine; Visit Provider Physician Assistant | DX: J44.1 Chronic obstructive pulmonary disease with (acute) exacerbation; H61.22 Impacted cerumen, left ear; M25.532 Pain in left wrist | CPT/HCPCS: 73090; 87400; 99213 ==

== ENCOUNTER → 2023-08-15 14:45 | Outpatient (BNVA) | payer MEDICARE, SELFPAY | PROVIDERS: PCP Family Medicine; Visit Provider Physician Assistant | DX: M17.0 Bilateral primary osteoarthritis of knee (principal) | CPT/HCPCS: 20610; 99213; J3301 ==

== ENCOUNTER → 2023-08-19 10:08 | Outpatient (BNVA) | payer MEDICARE, SELFPAY | PROVIDERS: PCP Family Medicine; Visit Provider Nurse Practitioner Family | DX: R63.4 Abnormal weight loss (principal); J44.1 Chronic obstructive pulmonary disease with (acute) exacerbation; E55.9 Vitamin D deficiency, unspecified; I10 Essential (primary) hypertension | CPT/HCPCS: 80053; 82306; 82607; 83735; 84443; 85025 ==

== ENCOUNTER 2023-08-23 16:34 | Outpatient (CLI) | payer MEDICARE, SELFPAY ==
--- NOTE | 2023-08-23 16:45 | MR_ITS ---
WS: [id number] MRI LEFT SHOULDER NONCONTRAST TECHNIQUE: Sagittal T2, coronal T1, T2 and proton density imaging. Axial gradient PDE imaging. CLINICAL INFORMATION: SHOULDER PAIN COMPARISON: None. FINDINGS: Some images degraded by motion. Prior resection of the distal clavicle. Small joint effusion. Intramuscular edema involving the supra spinatus and infraspinatus muscle bellies. High-grade complete tear of the supraspinatus with retract ion to the level of the glenohumeral joint. Chronic atrophy of the supraspinatus and infraspinatus mu scle belly. Partial high-grade intrasubstance and bursal surface tear of the distal infraspinatus wit h intact fibers distally. Normal teres minor. Increased T2 signal abnormality involving the subscapularis with some laxity like ly due to partial intrasubstance tear. Biceps tendon appears intact in the bicipital groove although somewhat diminutive. Medial subluxation along the proximal bicipital groove. Tiny intra articular bic eps tendon difficult to visualize likely due to chronic tear. Biceps labral anchor is not well visual ized. Diffuse chronic appearing irregularity of the glenoid labrum with subchondral cystic change inv olving the glenoid. Moderate to advanced degenerative narrowing of the glenohumeral articulation. MR/MR shoulder LT wo con* [id number] IMPRESSION: 1. Prior resection of the distal clavicle. 2. High-grade complete tear of the supraspinatus with retraction to the level of the glenohumeral joint. 3. Partial approximate 50% tear of the infraspinatus with intact fibers distal ly. 4. Increased signal with laxity involving the subscapularis tendon likely due to partial intrasubstance tear. 5. Biceps tendon appears intact within the bicipital groove with medial sublux ation along the proximal groove. 6. Diminutive intra-articular biceps tendon likely due to chronic tear. Biceps labral anchor is not well visualized. 7. Chronic appearing degenerative fraying and irregularity of the glenoid labr um. 8. Advanced degenerative narrowing of the glenohumeral articulation. 9. Small joint effusion.
== END 2023-08-23 16:35 | disposition home or self-care (01) ==
LOC: RAD 16:34
PROVIDERS: PCP Family Medicine; Visit Provider Physician Assistant
DX: M75.42 Impingement syndrome of left shoulder (principal); M19.012 Primary osteoarthritis, left shoulder; M75.122 Complete rotator cuff tear or rupture of left shoulder, not specified as traumatic; S43.432A Superior glenoid labrum lesion of left shoulder, initial encounter; Z98.890 Other specified postprocedural states; X58.XXXA Exposure to other specified factors, initial encounter
CPT/HCPCS: 73221

== ENCOUNTER 2023-09-12 09:05 | Outpatient (CLI) | payer MEDICARE, SELFPAY ==
--- NOTE | 2023-09-12 09:00 | CT_ITS ---
WS: [id number] CT CHEST, ABDOMEN AND PELVIS WITH CONTRAST HISTORY: R63.4 - Abnormal weight loss TECHNIQUE: Contiguous 5 mm axial imaging performed through the chest, abdomen and pelvis with IV cont rast, oral contrast has been provided. Coronal and sagittal reformats chest. Coronal and sagittal ref ormats through the abdomen and pelvis. All CT scans at [facility] use at least one of these d ose optimization techniques: automated exposure control; mA and/or kV adjustment per patient size (in cludes targeted exams where dose is matched to clinical indication); or iterative reconstruction. CONTRAST: Omnipaque 350; 100 mL IV. DLP: 433.97 mGy.cm COMPARISON: 07/03/2023, Chest CT: Moderate chronic centrilobular emphysema. Reidentified is a 6 mm nodule at the LEFT hilum w hich was described on 07/03/2023 without increase in size. No additional mass. No pneumonia. No perica rdial or pleural effusions. Moderate atherosclerosis thoracic aorta. Normal size pulmonary artery. At herosclerosis proximal great vessels. No mediastinal or hilar adenopathy. Abdomen CT: Normal size liver with 1.0 cm cyst in the medial RIGHT lobe. Normal portal vein. Prior ch olecystectomy. Normal spleen and pancreas. No adrenal mass. Kidneys are normal size. 1.8 cm cortical cyst superior pole RIGHT kidney. No solid mass. Cortical thinning and scarring LEFT kidney with no ob struction or solid mass. 0.8 cm cortical hypodensity superior pole LEFT kidney is too small to charac terize. Moderate atherosclerosis aorta. Atherosclerotic plaque at the origin of the SMA and celiac ax is. No obstruction of the mesenteric vessels. Stomach is distended with fluid and food products. Mild dilatation of the duodenal C-loop. No small b owel obstruction. Diffuse colonic dilatation with fecal material. Prior appendectomy. No submucosal w all thickening. There is a changing caliber of the colon at the splenic flexure but no mass identifie d. No significant diverticular disease. No adenopathy or ascites. Pelvic CT: Prior hysterectomy. Minimally distended urinary bladder. No free fluid or adenopathy in th e pelvis. Osteopenia. No destructive bone lesions. Increase in upper thoracic kyphosis. Healed rib fractures in the RIGHT thorax. CT/CT chest abdpel w/*[id number] IMPRESSION: 1. Advanced centrilobular emphysema. Stable 6 mm nodule at the LEFT hilum. No mass or pneumonia. 2. No mediastinal or hilar adenopathy. No adenopathy in the abdomen or pelvis. 3. No ascites. 4. Prior cholecystectomy, appendectomy and hysterectomy. 5. Moderate constipation. There is a change of caliber in the colon near the s plenic flexure. No obvious mass is identified within the colon. Differential in cludes mild peristalsis or early neoplasm. Colon would be better evaluated by c olonoscopy. 6. Atherosclerosis aorta and origin of the celiac axis and SMA. No complete ob struction. No thrombus.
[2023-09-12] MEDS: iohexol 350 mg/mL 500 mL Btl (per mL) IV (10:22)
[2023-09-12] MEDS: barium sulfate 450 mL Oral Susp PO (10:25)
== END 2023-09-12 09:06 | disposition home or self-care (01) ==
LOC: RAD 09:05
PROVIDERS: PCP Family Medicine; Visit Provider Nurse Practitioner Family
DX: R63.4 Abnormal weight loss (principal); J43.2 Centrilobular emphysema; I70.0 Atherosclerosis of aorta; K59.00 Constipation, unspecified; R91.1 Solitary pulmonary nodule; N28.1 Cyst of kidney, acquired; Z90.710 Acquired absence of both cervix and uterus; Z90.49 Acquired absence of other specified parts of digestive tract
CPT/HCPCS: 71260; 74177; Q9967

== ENCOUNTER → 2023-09-13 09:36 | Outpatient (BNVA) | payer MEDICARE, SELFPAY | PROVIDERS: PCP Family Medicine; Visit Provider Student in an Organized Health Care Education/Training Program | DX: M75.102 Unspecified rotator cuff tear or rupture of left shoulder, not specified as traumatic (principal); Z09 Encounter for follow-up examination after completed treatment for conditions other than malignant neoplasm; M75.22 Bicipital tendinitis, left shoulder; M75.42 Impingement syndrome of left shoulder | CPT/HCPCS: 99214 ==

== ENCOUNTER → 2023-09-26 14:43 | Outpatient (BNVA) | payer MEDICARE, SELFPAY | PROVIDERS: PCP Family Medicine; Referring Provider Nurse Practitioner Family; Visit Provider Surgery | DX: M19.032 Primary osteoarthritis, left wrist; K21.9 Gastro-esophageal reflux disease without esophagitis; R10.9 Unspecified abdominal pain; R63.4 Abnormal weight loss; R93.5 Abnormal findings on diagnostic imaging of other abdominal regions, including retroperitoneum | CPT/HCPCS: 20600; 73110; 99204; 99213; J3301; J3490 ==

== ENCOUNTER 2023-11-13 08:50 | Day surgery (SDC) | payer MEDICARE, SELFPAY ==
[2023-11-13 09:08] VITALS: BP 128/59; PULSE 89; RESP 17; TEMP 37.2; O2SAT 97; BMI 18.7
--- NOTE | 2023-11-13 09:13 | ANES.PREANE2 ---
Pre-Anesthetic Assessment Height/Weight: Height 1.55 m Weight 44.906 kg Temp Pulse Resp BP Pulse Ox O2 Del Method 98.9 F 89 17 128/59 97 Room Air 11/13/23 09:08 11/13/23 09:08 11/13/23 09:08 11/13/23 09:08 11/13/23 09:08 11/13/23 09:08 Preop Diagnosis: colon mass Operation Date: 11/13/23 10:00 Proposed Procedures p EGD 62755, 22003, G0105, K21.9, R93.5, R63.4, R10.9(Not Applicable) - DO rolanda Mcknight Colonoscopy(Not Applicable) - Edgardo Cornelius DO Familial anesthetic complications: none Was Beta Judah taken within 24 hours: N/A Was Clonidine taken within 24 hours: N/A Last intake: Intake Last Liquid Date 11/13/23 Last Liquid Time 03:00 Last Solid Date 11/11/23 Last Solid Time 18:00 Social Tobacco and No alcohol 1/2 PPD pack(s) per day Exam alert, oriented x 3, clear to auscultation bilaterally and regular rate & rhythm Airway Submandibular: within normal limits Cervical ROM: within normal limits Mallampati: Class II Dentition: false History/ROS No significant history except as noted and No significant complaints Pulmonary Chronic Obstructive Pulmonary Disease and Shortness of Breath CV/HEM Hypertension and Myocardial Infarction stent 7 years ago None reported Hepatic None reported GI Gastroesophageal Reflux Disease Metabolic None reported Musc/skel None reported Neuropsych None reported Anesthetic Plan ASA status: 3 Anesthesia: MAC Risk of > 500 ml blood loss (7ml/kg in children): No Medications/Allergies Home Medications Medication Instructions Recorded Confirmed Last Taken Type incentive spirometer #1 ea 07/06/21 10/31/23 Unknown Rx omega XL 6 tab PO DAILY 02/06/22 11/12/23 11/11/23 History Oxygen 3L by nasal canula #1 ea 09/20/22 10/31/23 Unknown Rx atorvastatin 40 mg tablet 40 mg PO DAILY #90 tabs 11/06/22 11/12/23 11/11/23 Rx ferrous gluconate 324 mg (37.5 mg 324 mg PO BID #60 tabs 06/11/23 11/12/23 Unknown Rx iron) tablet cyclobenzaprine 10 mg tablet 10 mg PO .qhs #30 tabs 06/12/23 11/12/23 11/11/23 Rx benralizumab 30 mg/mL subcutaneous 30 mg SUBCUT .i6cqmgq #1 mL 07/09/23 11/12/23 10/22/23 Rx auto-injector (Fasenra Pen) B-complex with vitamin C 1 tab PO DAILY 07/18/23 11/12/23 11/11/23 History nystatin 100,000 unit/mL oral 1 ml PO TID #60 mL 08/14/23 11/12/23 Unknown Rx suspension fexofenadine 60 mg-pseudoephedrine 1 tab PO Q12H PRN allergy symptoms 09/10/23 11/12/23 11/11/23 Rx ER 120 mg tablet,ext.release,12 hr #30 tabs (Phyllis-D 12 Hour) ondansetron 8 mg disintegrating 8 mg PO Q8H PRN nausea and 09/10/23 11/12/23 Unknown Rx tablet vomiting #20 tabs acetylcysteine 100 mg/mL (10 %) 3 ml inhalation Q3H #100 mL 09/13/23 11/12/23 11/11/23 Rx solution albuterol sulfate 2.5 mg/3 mL 2.5 mg (3 mL) inhalation Q6H #360 09/13/23 11/12/23 11/11/23 Rx (0.083 %) solution for nebulization mL hydroxyzine pamoate 25 mg capsule 25 mg PO TID PRN itching #60 caps 09/30/23 11/12/23 11/11/23 Rx (Vistaril) azelastine 137 mcg-fluticasone 50 1 spray intranasal BID #23 grams 10/21/23 11/12/23 11/11/23 Rx mcg/spray nasal spray (Dymista) albuterol sulfate 90 mcg/actuation 2 puff inhalation QID PRN 11/12/23 11/12/23 11/11/23 History aerosol inhaler Shortness Of Breath benzonatate 100 mg capsule 100 mg PO QID 11/12/23 11/12/23 11/11/23 History budesonide 160 mcg-glycopyr 9 2 inh inhalation BID 11/12/23 11/12/23 11/11/23 History mcg-formot 4.8 mcg/actuation HFA inhaler (Breztri Aerosphere) clopidogrel 75 mg tablet 75 mg PO DAILY 11/12/23 11/12/23 Unknown History fenofibrate nanocrystallized 145 145 mg PO DAILY 11/12/23 11/12/23 11/11/23 History mg tablet ibandronate 150 mg tablet 150 mg PO .QMONTH 11/12/23 11/12/23 11/05/23 History ipratropium bromide 0.02 % See Rx Instructions .Route 11/12/23 Unknown Rx solution for inhalation .COMPLEX #250 mL lansoprazole 30 mg capsule,delayed 30 mg PO BID 11/12/23 11/12/23 11/11/23 History release levothyroxine 25 mcg tablet 25 mcg PO DAILY 11/12/23 11/12/23 11/05/23 History meloxicam 15 mg tablet See Rx Instructions .Route 11/12/23 Unknown Rx .COMPLEX #30 tabs triamterene 37.5 1 tab PO DAILY 11/12/23 11/12/23 11/11/23 History mg-hydrochlorothiazide 25 mg tablet Allergies Allergy/AdvReac Type Severity Reaction Status Date / Time pregabalin [From Lyrica] Allergy Unknown Unknown Verified 11/12/23 10:51 adhesive tape Allergy ADR-Itching Verified 11/12/23 10:51 codeine Allergy ADR-Itching Verified 11/12/23 10:51 gabapentin Allergy ADR-Itching Verified 11/12/23 10:51 hydrocodone Allergy ADR-Confusi Verified 11/12/23 10:51 on Iodinated Contrast Media Allergy lodinated Verified 11/12/23 10:51 contrast povidone-iodine Allergy ADR-Itching Verified 11/12/23 10:51 [From Betadine] [facility] Anesthesia Medical History Abnormal abdominal CT scan Aortic insufficiency with aortic stenosis Personal history of nicotine dependence Vitamin D deficiency Essential (primary) hypertension History of herpes zoster virus vaccination 2015 Nodular thyroid disease Fibromyalgia Acute non-seasonal allergic rhinitis Dyslipidemia Dilatation of aorta 3.9cm noted 2013 stable size 2016 Degeneration of intervertebral disc of cervical region Chronic obstructive pulmonary disease, unspecified Arteriosclerosis of coronary artery Arthralgia of multiple joints Adult onset hypothyroidism Surgical History History of colonoscopy History of percutaneous transluminal coronary angioplasty Stent January, History of thyroid cyst History of carpal tunnel release of both wrists History of bladder repair surgery History of arthroscopy of right knee History of abdominal hysterectomy History of cholecystectomy History of appendectomy Family History Other Asthma CAD (coronary artery disease) Diabetes Hyperlipidemia Hypertension Tuberculoid infection Social History Smoking and tobacco/nicotine status: never used tobacco/nicotine Second hand smoke exposure: Yes Alcohol intake: never Substance/Drug Use: never Adopted: No Caregiver/support person: No Lives independently: Yes Household members: none Housing: House Marital status: Number of children: 4 service: No Current occupational status: employed Current occupation: [employer], checker cashier Pets and animals: Yes Pets & animals: farm animals Do you think of yourself as: Straight/Heterosexual Current gender identity: Female Special keyona needs: No Data Anesthesia Cardiac Studies: Echocardiogram 03/27/22 Sestamibi Stress Test (Cardiology) 11/13/21
[2023-11-13] MEDS: sodium chloride 0.9% 1,000 ML 30 ML IV (09:15)
--- NOTE | 2023-11-13 09:50 | PM.HP ---
Providers/Chief Complaint Primary Care Provider: Concha Juárez MD Chief Complaint: K21.9, R93.4, R63.4, R10.9 History of Present Illness Sarah Banks is a 73 year old female Review of Systems General: Reports: 10 or more systems reviewed and unremarkable except in HPI and below Medications/Allergies Home Medications Medication Instructions Recorded Confirmed Last Taken Type incentive spirometer #1 ea 07/06/21 10/31/23 Unknown Rx omega XL 6 tab PO DAILY 02/06/22 11/12/23 11/11/23 History Oxygen 3L by nasal canula #1 ea 09/20/22 10/31/23 Unknown Rx atorvastatin 40 mg tablet 40 mg PO DAILY #90 tabs 11/06/22 11/12/23 11/11/23 Rx ferrous gluconate 324 mg (37.5 mg 324 mg PO BID #60 tabs 06/11/23 11/12/23 Unknown Rx iron) tablet cyclobenzaprine 10 mg tablet 10 mg PO .qhs #30 tabs 06/12/23 11/12/23 11/11/23 Rx benralizumab 30 mg/mL subcutaneous 30 mg SUBCUT .r7jmiha #1 mL 07/09/23 11/12/23 10/22/23 Rx auto-injector (Fasenra Pen) B-complex with vitamin C 1 tab PO DAILY 07/18/23 11/12/23 11/11/23 History nystatin 100,000 unit/mL oral 1 ml PO TID #60 mL 08/14/23 11/12/23 Unknown Rx suspension fexofenadine 60 mg-pseudoephedrine 1 tab PO Q12H PRN allergy symptoms 09/10/23 11/12/23 11/11/23 Rx ER 120 mg tablet,ext.release,12 hr #30 tabs (Phyllis-D 12 Hour) ondansetron 8 mg disintegrating 8 mg PO Q8H PRN nausea and 09/10/23 11/12/23 Unknown Rx tablet vomiting #20 tabs acetylcysteine 100 mg/mL (10 %) 3 ml inhalation Q3H #100 mL 09/13/23 11/12/23 11/11/23 Rx solution albuterol sulfate 2.5 mg/3 mL 2.5 mg (3 mL) inhalation Q6H #360 0511/12/23 11/11/23 Rx (0.083 %) solution for nebulization mL hydroxyzine pamoate 25 mg capsule 25 mg PO TID PRN itching #60 caps 09/30/23 11/12/23 11/11/23 Rx (Vistaril) azelastine 137 mcg-fluticasone 50 1 spray intranasal BID #23 grams 10/21/23 11/12/23 11/11/23 Rx mcg/spray nasal spray (Dymista) albuterol sulfate 90 mcg/actuation 2 puff inhalation QID PRN 11/12/23 11/12/23 11/11/23 History aerosol inhaler Shortness Of Breath benzonatate 100 mg capsule 100 mg PO QID 11/12/23 11/12/23 11/11/23 History budesonide 160 mcg-glycopyr 9 2 inh inhalation BID 11/12/23 11/12/23 11/11/23 History mcg-formot 4.8 mcg/actuation HFA inhaler (Breztri Aerosphere) clopidogrel 75 mg tablet 75 mg PO DAILY 11/12/23 11/12/23 Unknown History fenofibrate nanocrystallized 145 145 mg PO DAILY 11/12/23 11/12/23 11/11/23 History mg tablet ibandronate 150 mg tablet 150 mg PO .QMONTH 11/12/23 11/12/23 11/05/23 History ipratropium bromide 0.02 % See Rx Instructions .Route 11/12/23 Unknown Rx solution for inhalation .COMPLEX #250 mL lansoprazole 30 mg capsule,delayed 30 mg PO BID 11/12/23 11/12/23 11/11/23 History release levothyroxine 25 mcg tablet 25 mcg PO DAILY 11/12/23 11/12/23 11/05/23 History meloxicam 15 mg tablet See Rx Instructions .Route 11/12/23 Unknown Rx .COMPLEX #30 tabs triamterene 37.5 1 tab PO DAILY 11/12/23 11/12/23 11/11/23 History mg-hydrochlorothiazide 25 mg tablet Allergies Allergy/AdvReac Type Severity Reaction Status Date / Time pregabalin [From Lyrica] Allergy Unknown Unknown Verified 11/12/23 10:51 adhesive tape Allergy ADR-Itching Verified 11/12/23 10:51 codeine Allergy ADR-Itching Verified 11/12/23 10:51 gabapentin Allergy ADR-Itching Verified 11/12/23 10:51 hydrocodone Allergy ADR-Confusi Verified 11/12/23 10:51 on Iodinated Contrast Media Allergy lodinated Verified 11/12/23 10:51 contrast povidone-iodine Allergy ADR-Itching Verified 11/12/23 10:51 [From Betadine] PFSH Acute PFSH: Medical History Abnormal abdominal CT scan Aortic insufficiency with aortic stenosis Personal history of nicotine dependence Vitamin D deficiency Essential (primary) hypertension History of herpes zoster virus vaccination 2015 Nodular thyroid disease Fibromyalgia Acute non-seasonal allergic rhinitis Dyslipidemia Dilatation of aorta 3.9cm noted 2013 stable size 2015 Degeneration of intervertebral disc of cervical region Chronic obstructive pulmonary disease, unspecified Arteriosclerosis of coronary artery Arthralgia of multiple joints Adult onset hypothyroidism Surgical History History of colonoscopy 1969' History of percutaneous transluminal coronary angioplasty Stent January, History of thyroid cyst History of carpal tunnel release of both wrists History of bladder repair surgery History of arthroscopy of right knee History of abdominal hysterectomy 1969' History of cholecystectomy 1969' History of appendectomy Family History Other Asthma CAD (coronary artery disease) Diabetes Hyperlipidemia Hypertension Tuberculoid infection Social History Smoking and tobacco/nicotine status: never used tobacco/nicotine Second hand smoke exposure: Yes Alcohol intake: never Substance/Drug Use: never Adopted: No Caregiver/support person: No Lives independently: Yes Household members: none Housing: House Marital status: Number of children: 4 service: No Current occupational status: employed Current occupation: [employer], dining room cashier Pets and animals: Yes Pets & animals: farm animals Do you think of yourself as: Straight/Heterosexual Current gender identity: Female Special keyona needs: No Vitals/I&O/Wt Last Vital Signs Temp 98.9 F 11/13/23 09:08 Pulse 89 11/13/23 09:08 Resp 17 11/13/23 09:08 BP 128/59 11/13/23 09:08 Pulse Ox 97 11/13/23 09:08 O2 Del Method Room Air 11/13/23 09:08 Weight last 48 hrs Weight 99 lb A&P Assessment and plan (1) Acid reflux: Qualifiers: Esophagitis presence: without esophagitis Qualified Code(s): K21.9 - Gastro-esophageal reflux disease without esophagitis (2) Abnormal abdominal CT scan: (3) Abdominal pain: Plan EGD and colonoscopy Attestations Medical Necessity Statement*: Home Coding Level of Care Code Acute Code for Chg Fwd Diagnoses Gastroesophageal reflux disease without esophagitis K21.9 Esophagitis presence: without esophagitis Abnormal abdominal CT scan R93.5 Abdominal pain R10.9
[2023-11-13 10:30] VITALS: BP 105/51; PULSE 66; RESP 14; TEMP 36.1; O2SAT 99
[2023-11-13 10:48] VITALS: BP 131/91; PULSE 74; RESP 16; O2SAT 96
--- NOTE | 2023-11-13 11:00 | ANE.PACU2 ---
Inpatient post-anesthesia follow up: Airway intact: Yes Vital signs: Temperature 97 F Pulse Rate 74 Respiratory Rate 16 Blood Pressure 131/91 Pulse Oximetry 96 Oxygen Delivery Me thod Room Air Oxygen Flow Rate Fraction of Inspir ed Oxygen Hydration adequate: Yes Nausea and vomiting: No Pain level: 1 Mental status: Baseline
== END 2023-11-13 11:02 | disposition home or self-care (01) ==
PROVIDERS: PCP Family Medicine; Visit Provider Surgery
PROC: 0DJ08ZZ Inspection of Upper Intestinal Tract, Via Natural or Artificial Opening Endoscopic (ICD-10-PCS; CPT 43235; principal; 2023-11-13 10:00)
PROC: 0DJD8ZZ Inspection of Lower Intestinal Tract, Via Natural or Artificial Opening Endoscopic (ICD-10-PCS; CPT 45378; 2023-11-13 10:00)
DX: R93.5 Abnormal findings on diagnostic imaging of other abdominal regions, including retroperitoneum (principal); K21.9 Gastro-esophageal reflux disease without esophagitis; R63.4 Abnormal weight loss; Z68.1 Body mass index [BMI] 19.9 or less, adult; R10.9 Unspecified abdominal pain; K29.70 Gastritis, unspecified, without bleeding; I10 Essential (primary) hypertension; I25.2 Old myocardial infarction; Z99.81 Dependence on supplemental oxygen; M79.7 Fibromyalgia; E78.5 Hyperlipidemia, unspecified; E03.9 Hypothyroidism, unspecified
CPT/HCPCS: 43239; 45378; 88305; J2704; J7030

== ENCOUNTER 2023-11-20 05:40 | Day surgery (SDC) | payer MEDICARE, SELFPAY ==
[2023-11-20] VITALS (15 sets, daily range): BP systolic 129–186; BP diastolic 58–95; PULSE 58–76; RESP 14–21; TEMP 36.1–36.7; O2SAT 94–100; BMI 18.7
[2023-11-20] MEDS: sodium chloride 0.9% 1,000 ML 30 ML IV (06:19)
[2023-11-20] MEDS: acetaminophen 1,000 MG/100 ML PIGGYBACK 400 MG IV (06:22)
[2023-11-20] MEDS: scopolamine 1.5 Patch 1 PATCH TRANSDERMA (06:27)
[2023-11-20] MEDS: ketorolac 30 mg/mL INJ IVP (06:28)
--- NOTE | 2023-11-20 06:58 | P.ANESASSM_ITS ---
Pre-Anesthetic Assessment Height/Weight: Height 1.55 m Weight 44.906 kg Temp Pulse Resp BP Pulse Ox O2 Del Method 98 F 62 18 173/63 97 Room Air 11/20/23 06:10 11/20/23 06:10 11/20/23 06:10 11/20/23 06:27 11/20/23 06:10 11/20/23 06:47 Operation Date: 11/20/23 07:00 Proposed Procedures p Shoulder Arthroscopy(Left) - Xavier Porter, DO s Subacromial Decompression(Left) - Xavier Porter, DO s Rotator Cuff Repair - Arthroscopy(Left) - Xavier Porter, DO s Bicep Tenotomy vs. tenodesis(Left) - Xavier Porter, DO s Possible Subacromial Ballon Spacer(Left) - Xavier Porter, DO Familial anesthetic complications: None Was Beta Judah taken within 24 hours: N/A Was Clonidine taken within 24 hours: N/A Last intake: Intake Last Liquid Date 11/19/23 Last Liquid Time 20:00 Last Solid Date 11/19/23 Last Solid Time 19:00 Social Tobacco and No alcohol Exam alert, oriented x 3, clear to auscultation bilaterally and regular rate & rhythm Airway Mallampati: Class I Dentition: false Pulmonary Asthma and Chronic Obstructive Pulmonary Disease (no Oxygen) CV/HEM Hypertension and Myocardial Infarction (stent seven years ago, recent negative stress test) Mild and AI Metabolic Hyperlipidemia and Thyroid Disease Anesthetic Plan ASA status: 3 Anesthesia: General and Regional (specify below) Risk of > 500 ml blood loss (7ml/kg in children): No Medications/Allergies Home Medications Medication Instructions Recorded Confirmed Last Taken Type incentive spirometer #1 ea 07/06/21 10/31/23 Unknown Rx Oxygen 3L by nasal canula #1 ea 09/20/22 10/31/23 Unknown Rx atorvastatin 40 mg tablet 40 mg PO DAILY #90 tabs 11/06/22 11/19/23 11/19/23 Rx benralizumab 30 mg/mL subcutaneous 30 mg SUBCUT .q5xqvvd #1 mL 07/09/23 11/19/23 10/22/23 Rx auto-injector (Fasenra Pen) B-complex with vitamin C 1 tab PO DAILY 07/18/23 11/19/23 11/17/23 History fexofenadine 60 mg-pseudoephedrine 1 tab PO Q12H PRN allergy symptoms 09/10/23 11/19/23 11/11/23 Rx ER 120 mg tablet,ext.release,12 hr #30 tabs (Phyllis-D 12 Hour) ondansetron 8 mg disintegrating 8 mg PO Q8H PRN nausea and 09/10/23 11/20/23 Unknown Rx tablet vomiting #20 tabs acetylcysteine 100 mg/mL (10 %) 3 ml inhalation Q3H #100 mL 09/13/23 11/19/23 11/18/23 Rx solution albuterol sulfate 2.5 mg/3 mL 2.5 mg (3 mL) inhalation Q6H #360 09/13/23 11/19/23 11/20/23 03:00 Rx (0.083 %) solution for nebulization mL hydroxyzine pamoate 25 mg capsule 25 mg PO TID PRN itching #60 caps 09/30/23 11/19/23 11/11/23 Rx (Vistaril) albuterol sulfate 90 mcg/actuation 2 puff inhalation QID PRN 11/12/23 11/19/23 11/18/23 History aerosol inhaler Shortness Of Breath benzonatate 100 mg capsule 100 mg PO QID PRN cough 11/12/23 11/19/23 11/11/23 History budesonide 160 mcg-glycopyr 9 2 inh inhalation BID PRN Wheezing 11/12/23 11/20/23 11/11/23 History mcg-formot 4.8 mcg/actuation HFA inhaler (Breztri Aerosphere) ibandronate 150 mg tablet 150 mg PO .QMONTH 11/12/23 11/20/23 11/05/23 History ipratropium bromide 0.02 % See Rx Instructions .Route 11/12/23 11/20/23 Unknown Rx solution for inhalation .COMPLEX #250 mL levothyroxine 25 mcg tablet 25 mcg PO DAILY 11/12/23 11/19/23 11/18/23 History meloxicam 15 mg tablet 15 mg PO DAILY 11/19/23 11/19/23 11/18/23 History Allergies Allergy/AdvReac Type Severity Reaction Status Date / Time pregabalin [From Lyrica] Allergy Unknown Unknown Verified 11/19/23 16:11 adhesive tape Allergy ADR-Itching Verified 11/19/23 16:11 codeine Allergy ADR-Itching Verified 11/19/23 16:11 gabapentin Allergy ADR-Itching Verified 11/19/23 16:11 hydrocodone Allergy ADR-Confusi Verified 11/19/23 16:11 on Iodinated Contrast Media Allergy lodinated Verified 11/19/23 16:11 contrast povidone-iodine Allergy ADR-Itching Verified 11/19/23 16:11 [From Betadine] Current Medications Generic Name Dose Route Start Last Admin Trade Name Freq PRN Reason Stop Dose Admin Sodium Chloride 1,000 mls @ 30 mls/hr 11/20/23 06:00 11/20/23 06:19 Sodium Chloride 0.9% IV 11/21/23 05:59 30 mls/hr .Q24H JEFFREY Administration PFSH Anesthesia Medical History Abnormal abdominal CT scan Aortic insufficiency with aortic stenosis Personal history of nicotine dependence Vitamin D deficiency Essential (primary) hypertension History of herpes zoster virus vaccination 2015 Nodular thyroid disease Fibromyalgia Acute non-seasonal allergic rhinitis Dyslipidemia Dilatation of aorta 3.9cm noted 2013 stable size 2016 Degeneration of intervertebral disc of cervical region Chronic obstructive pulmonary disease, unspecified Arteriosclerosis of coronary artery Arthralgia of multiple joints Adult onset hypothyroidism Surgical History History of colonoscopy 1969' History of percutaneous transluminal coronary angioplasty Stent January, History of thyroid cyst 1979' History of carpal tunnel release of both wrists 1979' History of bladder repair surgery 1969' History of arthroscopy of right knee History of abdominal hysterectomy 1969' History of cholecystectomy 1969' History of appendectomy Family History Other Asthma CAD (coronary artery disease) Diabetes Hyperlipidemia Hypertension Tuberculoid infection Social History Smoking and tobacco/nicotine status: never used tobacco/nicotine Second hand smoke exposure: Yes Alcohol intake: never Substance/Drug Use: never Adopted: No Caregiver/support person: No Lives independently: Yes Household members: none Housing: House Marital status: Number of children: 4 service: No Current occupational status: employed Current occupation: [employer], tractor trailer mechanic Pets and animals: Yes Pets & animals: farm animals Do you think of yourself as: Straight/Heterosexual Current gender identity: Female Special keyona needs: No Data Anesthesia Cardiac Studies: Echocardiogram 03/27/22 Sestamibi Stress Test (Cardiology) 11/13
--- NOTE | 2023-11-20 07:01 | P.HP_ITS ---
Same Day Surgery H&P Indication for Procedure/HPI DATE OF PROCEDURE: November 20, 2023 CHIEF COMPLAINT/INDICATIONFOR SURGICAL PROCEDURE: Left shoulder rotator cuff tear, subacromial impingement, biceps tendinitis/tear PREOP DIAGNOSIS: Left shoulder rotator cuff tear, subacromial impingement, biceps tendinitis PLANNED PROCEDURE: Operation Date: 11/20/23 07:00 Proposed Procedures p Shoulder Arthroscopy(Left) - Xavier Foster DO s Subacromial Decompression(Left) - Xavier Foster DO s Rotator Cuff Repair - Arthroscopy(Left) - Xavier Foster DO s Bicep Tenotomy vs. tenodesis(Left) - Xavier Foster DO s Possible Subacromial Ballon Spacer(Left) - Xavier Foster DO Medications/Allergies* Home Medications Medication Instructions Recorded Confirmed Type B-complex with vitamin C 1 tab PO DAILY 07/18/23 11/19/23 History albuterol sulfate 90 mcg/actuation 2 puff inhalation QID PRN 11/12/23 11/19/23 History aerosol inhaler Shortness Of Breath benzonatate 100 mg capsule 100 mg PO QID PRN cough 11/12/23 11/19/23 History budesonide 160 mcg-glycopyr 9 2 inh inhalation BID PRN Wheezing 11/12/23 11/20/23 History mcg-formot 4.8 mcg/actuation HFA inhaler (Breztri Aerosphere) ibandronate 150 mg tablet 150 mg PO .QMONTH 11/12/23 11/20/23 History levothyroxine 25 mcg tablet 25 mcg PO DAILY 11/12/23 11/19/23 History meloxicam 15 mg tablet 15 mg PO DAILY 11/19/23 11/19/23 History Allergies/Adverse Reactions Allergy/AdvReac Type Severity Reaction Status Date / Time pregabalin [From Lyrica] Allergy Unknown Unknown Verified 11/19/23 16:11 adhesive tape Allergy ADR-Itching Verified 11/19/23 16:11 codeine Allergy ADR-Itching Verified 11/19/23 16:11 gabapentin Allergy ADR-Itching Verified 11/19/23 16:11 hydrocodone Allergy ADR-Confusi Verified 11/19/23 16:11 on Iodinated Contrast Media Allergy lodinated Verified 11/19/23 16:11 contrast povidone-iodine Allergy ADR-Itching Verified 11/19/23 16:11 [From Betadine] Current Medications: Generic Name Dose Route Start Last Admin Trade Name Freq PRN Reason Stop Dose Admin Sodium Chloride 1,000 mls @ 30 mls/hr 11/20/23 06:00 11/20/23 06:19 Sodium Chloride 0.9% IV 11/21/23 05:59 30 mls/hr .Q24H JEFFREY Administration Pertinent History/Comorbid Conditions* Medical History (Updated 11/14/23 @ 00:01 by SANDHYA Gipson) Abnormal abdominal CT scan Aortic insufficiency with aortic stenosis Personal history of nicotine dependence Vitamin D deficiency Essential (primary) hypertension History of herpes zoster virus vaccination 2014 Nodular thyroid disease Fibromyalgia Acute non-seasonal allergic rhinitis Dyslipidemia Dilatation of aorta 3.9cm noted 2013 stable size 2015 Degeneration of intervertebral disc of cervical region Chronic obstructive pulmonary disease, unspecified Arteriosclerosis of coronary artery Arthralgia of multiple joints Adult onset hypothyroidism Surgical History (Updated 05/30/19 @ 23:01 by SANTANA Yo-C) History of colonoscopy 1969' History of percutaneous transluminal coronary angioplasty Stent January, History of thyroid cyst History of carpal tunnel release of both wrists History of bladder repair surgery History of arthroscopy of right knee History of abdominal hysterectomy 1969' History of cholecystectomy 1969' History of appendectomy Family History (Updated 05/30/19 @ 23:03 by SANTANA Yo-C) Tuberculoid infection Diabetes CAD (coronary artery disease) Hyperlipidemia Hypertension Asthma Social History Smoking and tobacco/nicotine status: never used tobacco/nicotine Second hand smoke exposure: Yes Alcohol intake: never Substance/Drug Use: never Adopted: No Caregiver/support person: No Lives independently: Yes Household members: none Housing: House Marital status: Number of children: 4 service: No Current occupational status: employed Current occupation: [employer], food and beverage cashier Pets and animals: Yes Pets & animals: farm animals Do you think of yourself as: Straight/Heterosexual Current gender identity: Female Special keyona needs: No Pertinent Exam Findings alert, oriented x 3, operative site marked and procedure specific exam findings Please refer to detailed orthopedic examination on 09/12/2023 Left Shoulder -no visible deformities -Tender to palpation over deltoid and lateral aspect of shoulder and biceps tendon -Range of motion active 0-140 degrees and passive 140-160 degrees -Rotator cuff strength internal 5/5 and external showed some weakness with pain. -Jobes test positive with pain -Speed's Test positive -O'Briens test-positive -Lux impingement- positive -Empty can test-positive -Radial pulse 2+, normal cap refill under 2 seconds and patient can wiggle fingers. -Sensation to hand intact Recommendations Surgery/Procedure today Other Plans: Plan to proceed to the OR today for left shoulder diagnostic and surgical arthroscopy with subacromial decompression, rotator cuff repair, biceps tenotomy versus tenodesis, possible subacromial balloon spacer. Patient understands the ins and outs procedure the risk benefits complication alternatives of surgery and through shared decision-making lets proceed with surgical intervention at this time. Once again we reviewed she does have some advanced arthritis as well as rotator cuff tears however I do feel as though we can offer her some improvement from the standpoint of improved function as well as help with her pain she understands this is probably not going to completely resolve given she does have some underlying arthritis as well as fairly high- grade tear but at this point in time she like to pursue moree unde minimally invasive option versus any type of definitive joint replacement. Understanding she elects to proceed with surgical intervention for left shoulder arthroscopy for stated procedure. All questions answered this time. Coding Level of Care Code Acute Code for Miguelito Brannon
[2023-11-20] MEDS: ceFAZolin 2,000 MG in sodium chloride 0.9% (plus) 50 ML 100 MG IV (07:02)
[2023-11-20] MEDS: EPINEPHrine 1 mg/mL INJ 2 MG XX (07:53)
--- NOTE | 2023-11-20 09:01 | P.BOP_ITS ---
Date of Procedure: [11/20/2023] Surgeon: Xavier Foster DO Civil Preparedness Coordinator(s): Charlie Foster PA-C Procedure(s) performed: Left shoulder diagnostic and surgical arthroscopy with biceps tenodesis Left shoulder diagnostic and surgical arthroscopy with labral debridement Left shoulder diagnostic and surgical arthroscopy with removal of loose bodies greater than 1 cm Left shoulder diagnostic and surgical arthroscopy with subacromial decompression Left shoulder diagnostic and surgical arthroscopy with rotator cuff cable reconstruction for massive rotator cuff tendon (partial rotator cuff repair) Left shoulder diagnostic and surgical arthroscopy with subacromial balloon spacer Findings of the procedure(s): Patient was found to have significant bicep tendon tearing of the bicep labral complex underwent bicep tenodesis as well as labral debridement was found in the glenohumeral joint to have shearing off of the humeral head cartilage with multiple loose bodies which were subsequently removed 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 Patient had significant rotator cuff tear consistent with massive rotator cuff tear and was unable to fully be pulled back over for a full-blown repair under went a rotator cuff cable reconstruction given this massive tear as well as partial repair I then subsequently given there is still exposed humeral head placed and selected for a small subacromial balloon spacer which was placed. Patient did also undergo a subacromial decompression to open up the subacromial space. Of note patient did have intact subscapularis tendon. Patient tolerated procedure well without issues or complication taken PACU stable condition Estimated blood loss: 10 mL Specimen(s) removed: None Post-operative diagnosis: Left shoulder massive rotator cuff tear, loose bodies, subacromial impingement, biceps tendon tear/labral tear, subacromial impingement
--- NOTE | 2023-11-20 09:05 | P.OP_ITS ---
Operative Report Date of procedure: November 20, 2023 Surgeon: Xavier Foster DO Police Shift Commander: Charlie Foster PA-C: PA was necessary for assistance in this case with shoulder positioning to execute the procedure, assistance with instrumentation, as well as implant fixation when necessary, assist with wound closure and dressing application. Procedure: Preoperative diagnosis: Left shoulder rotator cuff tear, subacromial impingement, biceps tendinitis/tear Post-op diagnosis: Left shoulder massive rotator cuff tear, loose bodies, subacromial impingement, biceps tendon tear/labral tear, subacromial impingement Procedure done: Left shoulder diagnostic and surgical arthroscopy with biceps tenodesis Left shoulder diagnostic and surgical arthroscopy with labral debridement Left shoulder diagnostic and surgical arthroscopy with removal of loose bodies greater than 1 cm Left shoulder diagnostic and surgical arthroscopy with subacromial decompression Left shoulder diagnostic and surgical arthroscopy with rotator cuff cable reconstruction for massive rotator cuff tendon (partial rotator cuff repair) Left shoulder diagnostic and surgical arthroscopy with subacromial balloon spacer Surgeon: Xavier Foster DO Estimated blood loss: 15mL IV fluids: See anesthesia record Implants: Arthrex 4.75 swivel lock x2 Arthrex fiber link suture Arthrex scorpion and suture tape [employer] space in space system (subacromial balloon spacer) Complications: None Condition: stable Disposition: same day Brief History: Patient been seen and worked up in the outpatient setting for Left shoulder p ain.? Pt had an MRI which showed findings below.? Patient's failed conservative treatment and has weakness.? We talked about treatment options far as nonoperative and operative intervention..? We talked about risk benefits complication alternatives surgical nonsurgical treatment options.? Understanding risk of surgery pt agrees to proceed with surgical intervention.? All questions have been answered at this time.? Patient elects proceed with surgery and consent obtained in office. MR/MR shoulder LT wo con* [id number] IMPRESSION: 1. Prior resection of the distal clavicle. 2. High-grade complete tear of the supraspinatus with retraction to the level of the glenohumeral joint. 3. Partial approximate 50% tear of the infraspinatus with intact fibers distal ly. 4. Increased signal with laxity involving the subscapularis tendon likely due to partial intrasubstance tear. 5. Biceps tendon appears intact within the bicipital groove with medial subluxation along the proximal groove. 6. Diminutive intra-articular biceps tendon likely due to chronic tear. Biceps labral anchor is not well visualized. 7. Chronic appearing degenerative fraying and irregularity of the glenoid labrum. 8. Advanced degenerative narrowing of the glenohumeral articulation. 9. Small joint effusion. Procedure: Patient seen evaluated in the preoperative holding area.? Consent reviewed and signed with patient.? Once again reviewed patient's MRI results as well as? planned surgical intervention.? Correct extremity marked.? Patient seen evaluated by anesthesia department received regional anesthesia.? Once ready for surgery was taken back to the operative suite.? Patient then subsequently underwent anesthesia per the anesthesia department was transported onto the OR table.? Patient was then placed into a lateral decubitus position with a beanbag and was appropriately secured to the bed.? All bony prominences well-padded.? Patient then had the Left upper extremity was then prepped and draped in standard orthopedic fashion.? Patient received appropriate preoperative antibiotics.? Final timeout performed. The Left upper extremity was then held in hanging from traction utilizing sterile technique.? Next started with standard diagnostic and surgical arthroscopy with posterior portal position introduced arthroscope into the glenohumeral joint.? Visualized the glenohumeral joint I then introduced a spinal needle within the?rotator?cuff?interval to confirm appropriate anterior portal placement.? Once this was confirmed I then made my small incision and then introduced my arthroscopic shaver into the glenohumeral joint.? After flushing the joint fluid, was clearly evident patient had biceps tendon tearing as well as Superior labral tear. Patient had appreciable unstable biceps anchor most pronounced in the superior labrum. Given there appears to be healthy intra-articular tendon plan was for an intra-articular biceps tenodesis at the superior portion as it enters the intertubercular groove. Superiorly I inspected and the massive rotator cuff was noted. Decision was made at that time perform a biceps tenodesis but incorporate this within the anterior anchor for the rotator cuff cable reconstruction. As a result I utilized an Arthrex suture link this is subsequently passed around the bicep tendon in standard fashion to capture fixation tendon subsequently performed a biceps tenotomy with a thermal wand and utilized the suture for later use. I then utilized a thermal wand to seal the edges of the superior labrum. ? Next I evaluated the subscapularis tendon which was intact and no evidence of tear. ?Next there was significant labral tearing at biceps anchor and circumferential.? ? I then subsequently utilized a a arthroscopic shaver and thermal wand to perform a labral debridement.? This point time I then visualized the glenohumeral joint.? The glenohumeral joint was found to have grade 3-4 chondromalacia throughout. Patient unfortunately had articular cartilage that was delaminating off of the humeral head and large loose bodies were noted I had to use arthroscopic grasper to remove 3 loose bodies greater then 1 cm each these were removed in their entirety and then utilize arthroscopic shaver and wand to perform glenohumeral joint chondroplasty to stable articular tissue. Infrapatellar pouch was free of loose bodies from viewing the posterior portal.? Next a visualized the?rotator?cuff?superiorly and there was found to be a massive rotator cuff tear. I utilized a spinal needle to rochelle this location.?? This completed my work within the glenohumeral joint all fluid was suctioned free of the joint.? ?Next I reintroduced the arthroscope posteriorly.? And went to the subacromial space.? I established my lateral working portal at the site of which my spinal needle was marking of the?rotator?cuff?tear.? Thermal wand was then introduced laterally and then I subsequently performed extensive bursectomy of the subacromial space.? Patient had a large anterior bone spur.? Patient had a previous AC joint resection as result no AC joint resection was performed during this case. I then introduced the arthroscopic shaver laterally while continuing to view posteriorly.? I then performed an acromioplasty to complete my subacromial decompression prior to addressing the rotator cuff tear. Next at this point in time I evaluated the rotator cuff tear after the subacromial decompression. At this point in time it was clearly evident the rotator cuff tear was massive and unable to have any tendon excursion to reattach to the rotator cuff footprint this was retracted to the level of the glenohumeral joint. There was some stable tissue and at this point in time I elected to pursue given the massive tear this would not be able to have a full repair but a partial repair of utilizing a rotator cuff cable reconstruction technique. I utilized Arthrex fiber tape and subsequently starting at the midp ortion of the rotator cuff tear as it was retracted to the level of the glenohumeral joint at the level of the glenoid I then subsequently utilized an Arthrex scorpion suture passer passed the suture tape and subsequently made sequential passes anteriorly with 1 limb and then posteriorly with the other limb to create a running stitch from posterior to anterior this allowed for appropriate pulling over of the rotator cuff cable more over the medial face of the humeral head to allow for a rotator cuff cable suspension and partial repair. Once this was then performed I then utilized the Arthrex punch and punched and loaded the anterior limb of the rotator cuff cable reconstruction suture tape as well as the fiber link suture for the biceps tenodesis and a 4.75 swivel lock did a punch into the anterior and lateral border to help pull forward this rotator cable and then subsequently punched in places 4.75 swivel lock with excellent purchase and fixation. This completed the anterior limb but also completed the bicep tenodesis on the superior border of the intertubercular groove. I then subsequently performed the same for the posterior lateral suture limb up to once again try and pull of the rotator cuff over for a partial repair for this rotator cuff cable reconstruction. This was subsequently punched loaded on 4.75 swivel lock in the posterior limb of the suture was then loaded punched and 4.75 swivel lock was secured and had excellent fixation all excess suture limbs were then subsequently cut and the rotator cuff cable reconstruction was complete. At this point in time given this was an incomplete repair and patient is over the age of 63 with a massive rotator cuff tear I felt as though she would be an excellent candidate for subacromial balloon spacer given I could not get a full repair and clearly would be evident patient would have issues with subacromial bony impingement underneath the surface of the acromion and clavicle. As a result I utilized [employer] orthopedic in space subacromial balloon system I subsequently made an appropriate measurement selected appropriate sized balloon I then opened up bilateral [place] slightly to accommodate for the subacromial balloon inserting device this was placed into appropriate position to its black line and then the environmental health physician sheath was subsequently removed and the subacromial balloon was exposed I then subsequently filled this up to the appropriate fluid volume per the size and per [employer]'s orthopedic subacromial balloon and space protocol this was subsequently insufflated had excellent positioning and at this point in time I utilized the release on the device and the guide was then subsequently removed and subacromial balloon spacer remained in excellent position shoulder was taken through range of motion and balloon had excellent positioning as well as protection of the exposed humeral head superiorly underneath the acromion. This completed the procedure. All fluid was suctioned from the shoulder.? All instruments were removed.? The lateral incision was then closed with nylon stitches.? As well as the portal sites closed with portal nylon stitches.? Xeroform 4 x 4's ABD and tape was then applied to the Left shoulder and was placed into a shoulder abduction pillow sling for?rotator?cuff?repair/subacromial balloon/biceps tenodesis.? Patient was then awakened from anesthesia and then taken back to PACU in stable condition.? Patient tolerated procedure without any issues. Disposition: Patient taken back in stable condition recovering well.? Dressings on in place clean dry and intact.? Will be nonweightbearing to the Left upper extremity.? Follow?rotator?cuff?repair protocol.? Patient to follow-up with me in the office in 2 weeks.? Patient will receive appropriate discharge instructio n as well as pain medication postoperatively.? All questions answered.? We will contact the office for any questions or concerns.
--- NOTE | 2023-11-20 09:46 | PC.NURSE ---
0940 - pt stating that left side of face feels numb - STYLIST ASSISTANT to side to assess - STYLIST ASSISTANT to get anesthesiologist to further evaluate
--- NOTE | 2023-11-20 09:52 | PM.PACU ---
PACU note Narrative: Patient is a 73-year-old female who just underwent a left shoulder arthroscopy. Patient transferred to PACU in stable condition. Pain is well controlled. shoulder Dressing on , dry and in place. Patient's operative arm is in a shoulder immobilizer. Patient is awake and alert and able to respond to my questions accordingly. Patient's fingers are warm with good perfusion. Normal cap refill under 2 seconds. Unable to assess further range of motion in arm due to sling. Unable to assess sensation due to residual localized anesthetic. Exam: awake Disposition: discharged
--- NOTE | 2023-11-20 10:04 | PC.NURSE ---
Dr Munson at [facility] [place] to assess pts complaints of left sided facial numbness
--- NOTE | 2023-11-20 10:11 | PC.NURSE ---
1010 - ok per Dr Munson to move to Phase II - notified SABRINA Reyes of need for Dr Munson to reassess pt prior to discharge
--- NOTE | 2023-11-20 10:13 | PM.MISC ---
Miscellaneous Note Purpose of Documentation: L facial numbness Note: Called to PACU to evaluate patient for L facial numbness. Upon exam patient has intact motor control (sticks out tongue, smiles/teeth show, frowns, closes eyes, purses lips) bilaterally and sensation to light touch is intact bilaterally. No slurring of speech. Upon further questioning patient is stating that it is her L arm and neck that are numb, and her mouth is just dry. Although, she had previously told bedside nurse her face was numb. will continue to monitor in phase I recovery and reassess again after more time has passed to allow anesthesia effects to dissipate.
--- NOTE | 2023-11-20 10:46 | PC.NURSE ---
pt states face is not knumb. complains of left arm knumb. Dr. go into see pt. ok for discharge.
--- NOTE | 2023-11-20 11:05 | ANE.PACU2 ---
Inpatient post-anesthesia follow up: Airway intact: Yes Vital signs: Temperature 97.1 F Pulse Rate 76 Respiratory Rate 18 Blood Pressure 137/89 Pulse Oximetry 94 Oxygen Delivery Me thod Room Air Oxygen Flow Rate 8 Fraction of Inspir ed Oxygen Hydration adequate: Yes Nausea and vomiting: No Pain level: 1 Mental status: Baseline Additional Comments: patient denied further facial numbness, except maybe some slight numbness over her top lip. informed patient if facial numbness returns to go to ER for stroke possiblity.
== END 2023-11-20 11:05 | disposition home or self-care (01) ==
PROVIDERS: PCP Family Medicine; Visit Provider Student in an Organized Health Care Education/Training Program
PROC: (CPT 29805; principal; 2023-11-20 07:00)
PROC: (CPT 29826; 2023-11-20 07:00)
PROC: 0LQ24ZZ Repair Left Shoulder Tendon, Percutaneous Endoscopic Approach (ICD-10-PCS; CPT 29827; 2023-11-20 07:00)
PROC: (CPT 23405; 2023-11-20 07:00)
PROC: (CPT 29999; 2023-11-20 07:00)
DX: M75.102 Unspecified rotator cuff tear or rupture of left shoulder, not specified as traumatic (principal); M25.812 Other specified joint disorders, left shoulder; M75.22 Bicipital tendinitis, left shoulder; M24.012 Loose body in left shoulder; J44.9 Chronic obstructive pulmonary disease, unspecified; I10 Essential (primary) hypertension; I25.2 Old myocardial infarction; Z95.5 Presence of coronary angioplasty implant and graft; E78.5 Hyperlipidemia, unspecified; E03.9 Hypothyroidism, unspecified; E55.9 Vitamin D deficiency, unspecified; I25.10 Atherosclerotic heart disease of native coronary artery without angina pectoris
CPT/HCPCS: 29819; 29826; 29827; 29828; C1713; J0131; J0171; J0690; J1100; J1885; J2371; J2405; J2704; J2795; J3010; J3490; J7030

== ENCOUNTER → 2023-12-05 14:45 | Outpatient (BNVA) | payer MEDICARE, SELFPAY | PROVIDERS: PCP Family Medicine; Visit Provider Physician Assistant | DX: Z98.890 Other specified postprocedural states (principal) | CPT/HCPCS: 99024 ==

== ENCOUNTER → 2023-12-09 14:52 | Outpatient (BNVA) | payer MEDICARE, SELFPAY | PROVIDERS: PCP Family Medicine; Visit Provider Surgery | DX: Z09 Encounter for follow-up examination after completed treatment for conditions other than malignant neoplasm (principal); R10.9 Unspecified abdominal pain; Z90.49 Acquired absence of other specified parts of digestive tract | CPT/HCPCS: 99214 ==

== ENCOUNTER 2024-01-14 06:30 | Outpatient (RCR) | payer MEDICARE, SELFPAY | END 2024-02-13 23:59 | disposition home or self-care (01) | LOC: TPT 06:30 | PROVIDERS: Visit Provider Physician Assistant | DX: Z98.890 Other specified postprocedural states (principal) | CPT/HCPCS: 97110; 97140; 97162 ==

== ENCOUNTER → 2024-01-16 10:46 | Outpatient (BNVA) | payer MEDICARE, SELFPAY | PROVIDERS: PCP Family Medicine; Visit Provider Nurse Practitioner Family | DX: I10 Essential (primary) hypertension; E78.5 Hyperlipidemia, unspecified; E03.8 Other specified hypothyroidism; E55.9 Vitamin D deficiency, unspecified | CPT/HCPCS: 80053; 80061; 82306; 82607; 84443; 85025 ==

== ENCOUNTER → 2024-01-17 11:11 | Outpatient (BNVA) | payer MEDICARE, SELFPAY | PROVIDERS: PCP Family Medicine; Visit Provider Physician Assistant | DX: Z98.890 Other specified postprocedural states (principal) | CPT/HCPCS: 99024 ==

== ENCOUNTER → 2024-01-29 12:02 | Outpatient (BNVA) | payer MEDICARE, SELFPAY | PROVIDERS: PCP Nurse Practitioner Family; Visit Provider Nurse Practitioner Family | DX: R53.83 Other fatigue (principal) | CPT/HCPCS: 85025 ==

== ENCOUNTER → 2024-01-30 15:15 | Outpatient (BNVA) | payer MEDICARE, SELFPAY | PROVIDERS: PCP Nurse Practitioner Family; Visit Provider Internal Medicine Cardiovascular Disease | DX: I35.0 Nonrheumatic aortic (valve) stenosis (principal); R53.83 Other fatigue; F17.210 Nicotine dependence, cigarettes, uncomplicated | CPT/HCPCS: 99214 ==

== ENCOUNTER 2024-01-31 13:48 | Outpatient (CLI) | payer MEDICARE, SELFPAY ==
--- NOTE | 2024-01-31 14:00 | XR_ITS ---
WS: [id number] DEXA (DUAL ENERGY X-RAY ABSORPTIOMETRY) Bone mineral density was performed using a GCW machine. HISTORY: M81.0 - Age-related osteoporosis without current patholog... COMPARISON: None available. Lumbar spine BMD (L2-L4): 0.983 T score: -1.8 Z score: 0.5 Total hip BMD: Left: 0.671 g/cm2. T score: -2.7 Z score: -0.5 Right: 0.648 g/cm2. T score: -2.9 Z score: -0.7 10 year probability of a major osteoporotic fracture is 25.9%. XR/XR DEXA axial skeleton* [id number] IMPRESSION: OSTEOPOROSIS based upon the WHO classification for females.
== END 2024-01-31 13:49 | disposition home or self-care (01) ==
LOC: RAD 13:50
PROVIDERS: PCP Nurse Practitioner Family; Visit Provider Nurse Practitioner Family
DX: Z13.820 Encounter for screening for osteoporosis (principal); M81.0 Age-related osteoporosis without current pathological fracture
CPT/HCPCS: 77080

== ENCOUNTER → 2024-02-04 14:23 | Outpatient (BNVA) | payer MEDICARE, SELFPAY | PROVIDERS: PCP Nurse Practitioner Family; Visit Provider Nurse Practitioner Family | DX: D64.9 Anemia, unspecified (principal); M81.0 Age-related osteoporosis without current pathological fracture | CPT/HCPCS: 82310; 82607; 82728; 82746; 83550; 85025 ==

== ENCOUNTER → 2024-02-13 13:30 | Outpatient (BNVA) | payer MEDICARE, SELFPAY | PROVIDERS: Visit Provider Physician Assistant | DX: M17.0 Bilateral primary osteoarthritis of knee (principal) | CPT/HCPCS: 20610; 99213; J3301 ==

== ENCOUNTER 2024-02-26 13:41 | Oncology outpatient (recurring) (ONCR) | payer MEDICARE, SELFPAY ==
--- OUTSIDE RECORDS SUMMARY | 2024-02-25 11:16 | XMS_ITS | Patient Health Record ---
Author Name Unknown Organization [facility] Address [address] [place] [address] Care Team Providers Care Battery Container Inspector Name Role Phone Tricia Elizondo APRN Primary Care Provider Kayden Nelson Unavailable [phone] Allergies Allergen (clinical drug ingredient) Drug/Non Drug Allergy documented on EMR Reaction Allergy Type Onset Date Status codeine Codeine , Drug Allergy Active Results Component Value Reference Range Notes Chest PA/Lat-94533 Reviewed date:02/18/2024 06:28:49 AM Interpretation: Performing Lab: Notes/Report: See Below For Report Chest PA/Lat Read See Below For Report Reason For Referral Reason COPD / Eosinophilic asthma 01/21: Waiting on updated demographics Diagnosis 1 Emphysema, unspecifi ed (J43.9) Diagnosis 2 Eosinophilic asthma (J82.83) Referring Provider First Name Tricia Referring Provider Last Name Caro Referring Provider Speciality Nurse Prac titioner Referred Organization [facility] Referred Provider Kayden Ignacio Referred Address [address] [place] [address] [address] [place],[phone] Referred Provider Specialty Pulmonary Jhoana mcghee Referral Priority Routine Medications Medication SIG (Take, Route, Frequency, Duration) Notes Start Date End Date Status Albuterol Albuterol 08/04/2015 Active tramadol hydrochloride 50 MG Oral Tablet tramadol hydrochloride 50 MG Oral Tablet 04/04/2016 Active gabapentin 100 MG Oral Capsule gabapentin 100 MG Oral Capsule 03/20/2016 Active Lisinopril 10 MG Oral Tablet Lisinopril 10 MG Oral Tablet 03/07/2016 Active clopidogrel clopidogrel 03/07/2016 Acti ve Ranitidine 300 MG Oral Tablet Ranitidine 300 MG Oral Tablet 06/07/2015 Active Pravastatin Pravastatin 06/07/2015 Acti ve Problems Problem Type SNOMED Code ICD Code Onset Dates Problem Status W/U Status Risk Notes Problem Emphysema (63629095) Emphysema, unspecified (J43.9) Active confirmed Problem Eosinophilic asthma (953209950) Eosinophilic asthma (J82.83) Active confirmed Plan Of Treatment No Information
--- OUTSIDE RECORDS SUMMARY | 2024-02-26 13:43 | XMS_ITS | Patient Health Record ---
Author Name Unknown Organization [facility] Address [address] [place] [address] Care Team Providers Care Cattle Knocker Name Role Phone Tricia Elizondo APRN Primary Care Provider Kayden Nelson Unavailable [phone] Allergies Allergen (clinical drug ingredient) Drug/Non Drug Allergy documented on EMR Reaction Allergy Type Onset Date Status codeine Codeine , Drug Allergy Active Results Component Value Reference Range Notes Chest PA/Lat-15323 Reviewed date:02/18/2024 06:28:49 AM Interpretation: Performing Lab: Notes/Report: See Below For Report Chest PA/Lat Read See Below For Report Reason For Referral Reason COPD / Eosinophilic asthma 01/21: Waiting on updated demographics Diagnosis 1 Emphysema, unspecifi ed (J43.9) Diagnosis 2 Eosinophilic asthma (J82.83) Referring Provider First Name Tricia Referring Provider Last Name Caro Referring Provider Speciality Nurse Prac titioner Referred Organization [facility] Referred Provider Kayden Ignacio Referred Address [address] [place] [address] [address] [place],[phone],[place] Referred Provider Specialty Pulmonary Jhoana mcghee Referral [...] Status W/U Status Risk Notes Problem Emphysema (73987400) Emphysema, unspecified (J43.9) Active confirmed Problem Eosinophilic asthma (387724965) Eosinophilic asthma (J82.83) Active confirmed Plan Of Treatment No Information
[2024-02-26 14:05] LABS: Basophils % 0.2 %; Hematocrit 30.6 % (36-47); Lymphocytes # 0.8 10^3/uL (0.8-4.8); Lymphocytes % 7.3 %; Mean Corpuscular Hemoglobin 28.7 pg (27-33); Mean Corpuscular Volume 89.5 fl (85-98); Mean Platelet Volume 8.8 fL (7.4-10.4); Monocytes # 0.4 10^3/uL (0.2-0.9); Monocytes % 3.8 %; Neutrophils # 9.07 10^3/uL (1.8-7.7); Neutrophils % 86.7 %; Nucleated Red Blood Cells % 0 %; Platelet Count 407 10^3/cmm (157-399); Red Blood Count 3.42 10^6/uL (3.85-5.65); Red Cell Distribution Width 15.1 % (12.1-15.1); White Blood Count 10.46 10^3/uL (3.29-11.43)
[2024-02-26 14:26] LABS: Alanine Aminotransferase 17 U/L (0-33); Alkaline Phosphatase 90 U/L (35-105); Anion Gap 15.5 (5-19); Aspartate Amino Transferase 14 U/L (0-32); Blood Urea Nitrogen 16 mg/dL (8-23); Calcium 8.1 mg/dL (8.5-10.5); Carbon Dioxide 22 mmol/L (22-29); Chloride 99 mmol/L (98-107); Creatinine Clr Calc Pharmacy 47.7534; Ferritin 42 ng/mL (15-150); Globulin 1.8 g/dL (1.3-4.6); Glucose 120 mg/dL (65-115); Iron 79 ug/dL (37-145); Lactate Dehydrogenase 213 U/L (135-214); Osmolality Calculated 276 mOsm/kg (285-295); Percent Saturation 23.3 % (20-50); Potassium 4.5 mmol/L (3.5-5.1); Sodium 132 mmol/L (136-145); Total Bilirubin 0.2 mg/dL (0.15-1.2); Total Iron Binding Capacity 338 mcg/dl; Total Protein 5.8 g/dL (6.6-8.7); Unsaturated Iron Binding 259 ug/dL (112-347)
[2024-02-26 14:32] LABS: Reticulocyte % 1.6 % (0.5-2.0)
[2024-02-26 14:45] LABS: Folate Level 7.5 ng/mL (4.8-37.3)
[2024-02-26 14:52] LABS: Vitamin B12 > 2000 pg/mL (232-1245)
[2024-03-04 13:11] LABS: Soluble Transferrin Receptor 1.79 mg/L (0.76-1.76)
== END 2024-03-14 23:59 | disposition home or self-care (01) ==
PROVIDERS: PCP Nurse Practitioner Family; Visit Provider Internal Medicine Hematology & Oncology
DX: D64.9 Anemia, unspecified (principal); M81.0 Age-related osteoporosis without current pathological fracture; F17.210 Nicotine dependence, cigarettes, uncomplicated; R53.83 Other fatigue; R53.1 Weakness
CPT/HCPCS: 36415; 80053; 82607; 82728; 82746; 83010; 83540; 83550; 83615; 84238; 85025; 85045; 99204

== ENCOUNTER 2024-03-02 11:49 | Outpatient (CLI) | payer MEDICARE, SELFPAY ==
--- NOTE | 2024-03-02 12:00 | USCV_ITS ---
Sarah Banks Age: 74 Gender: F : 1950 Exam Date: 03/02/2024 12:02 Ordering Phys: Madisyn White MD ([email or web address]) Technologist: CT [place] [facility] [place]: BP: 138 / 67 HR: 79 Rhythm: Sinus Technical Quality: Adequate MEASUREMENTS (Male / Female) Normal Values 2D ECHO LVOT Diameter 2.0 cm LV Ejection Fraction MOD 4C 61.7 % LV Ejection Fraction MOD 2C 85.5 % LV Ejection Fraction 2C AL 84.5 % LA Diameter 2.5 cm RA Systolic Volume 4C AL 21.1 ml RA Systolic Volume 4C MOD 21.4 ml LA Sys Volume AL 29.4 cm cubed LA Sys Volume Index AL 21.4 cm cubed/m squared Aorta at Sinotubular Diameter 1.7 cm IVC Diameter 1.9 cm M-MODE LA Ao Ratio MM 1.5 AV Cusp Separation MM 1.9 cm DOPPLER AV Peak Velocity 210.0 cm/s LVOT Peak Velocity 188.0 cm/s AV Area Cont Eq vti 3.4 cm squared AV Area Cont Eq pk 3.0 cm squared MV Peak Velocity 97.0 cm/s MV Area PHT 3.9 cm squared Mitral E to A Ratio 0.7 TR Peak Velocity 292.0 cm/s TR Peak Gradient 34.1 mmHg TV Peak E Velocity 79.0 cm/s Right Atrial Pressure 3.0 mmHg Pulmonary Artery Systolic Pressu 37.1 mmHg PV Peak Velocity 122.0 cm/s FINDINGS Left Ventricle Normal left ventricular size, systolic function and wall thickness, with no regional wall motion abnormalities. Left ventricular ejection fraction is estimated at 60 %. Grade I/IV diastolic dysfunction (abnormal relaxation filling pattern), normal to mildly elevated filling pressures. Right Ventricle The right ventricle is normal in size and function. Right Atrium The right atrium is normal in size. Left Atrium The left atrium is normal in size. Mitral Valve Moderately thickened mitral valve. Moderate mitral annular calcification. No mitral valve stenosis. Trace mitral valve regurgitation. Aortic Valve Mild aortic valve calcification. No aortic valve stenosis. Mild aortic valve regurgitation. Tricuspid Valve Structurally normal tricuspid valve without significant stenosis or regurgitation. Pulmonary artery systolic pressure is normal. Pulmonic Valve Structurally normal pulmonic valve without significant stenosis. There is no pulmonic regurgitation. Pericardium Normal pericardium without effusion. Aorta Normal ascending aorta dimension. IVC The inferior vena cava appears normal. CONCLUSIONS Normal left ventricular size, systolic function and wall thickness, with no regional wall motion abnormalities. Left ventricular ejection fraction is estimated at 60 %. Grade I/IV diastolic dysfunction (abnormal relaxation filling pattern), normal to mildly elevated filling pressures. Moderately thickened mitral valve. Moderate mitral annular calcification. No mitral valve stenosis. Trace mitral valve regurgitation. There is no pericardial effusion. Pulmonary artery systolic pressure is within normal limits. Right atrial pressure is around 5 mm of mercury. Madisyn White MD (Electronically Signed) Final Date: 06 March 2024 16:38 S
== END 2024-03-02 11:50 | disposition home or self-care (01) ==
LOC: RAD 11:50
PROVIDERS: PCP Nurse Practitioner Family; Visit Provider Internal Medicine Cardiovascular Disease
DX: I50.30 Unspecified diastolic (congestive) heart failure (principal); I34.81 Nonrheumatic mitral (valve) annulus calcification
CPT/HCPCS: 93306

== ENCOUNTER 2024-03-15 06:30 | Outpatient (RCR) | payer MEDICARE, SELFPAY | END 2024-04-14 23:59 | disposition home or self-care (01) | LOC: TPT 06:30 | PROVIDERS: PCP Nurse Practitioner Family; Visit Provider Physician Assistant | DX: Z98.890 Other specified postprocedural states (principal) | CPT/HCPCS: 97110 ==

== ENCOUNTER → 2024-03-27 08:44 | Outpatient (BNVA) | payer MEDICARE, SELFPAY | PROVIDERS: PCP Nurse Practitioner Family; Visit Provider Physician Assistant | DX: Z98.890 Other specified postprocedural states (principal); R03.0 Elevated blood-pressure reading, without diagnosis of hypertension | CPT/HCPCS: 99213 ==

== ENCOUNTER → 2024-04-01 11:08 | Outpatient (BNVA) | payer MEDICARE, SELFPAY | PROVIDERS: PCP Nurse Practitioner Family; Visit Provider Nurse Practitioner Family | DX: M81.0 Age-related osteoporosis without current pathological fracture (principal); I10 Essential (primary) hypertension; E55.9 Vitamin D deficiency, unspecified | CPT/HCPCS: 80048; 82306 ==

== ENCOUNTER 2024-04-15 06:30 | Outpatient (RCR) | payer MEDICARE, SELFPAY | END 2024-05-15 23:59 | disposition home or self-care (01) | LOC: TPT 06:30 | PROVIDERS: PCP Nurse Practitioner Family; Visit Provider Physician Assistant | DX: Z98.890 Other specified postprocedural states (principal) | CPT/HCPCS: 97110 ==

== ENCOUNTER 2024-05-05 13:38 | Oncology outpatient (recurring) (ONCR) | payer MEDICARE, SELFPAY ==
[2024-05-05 14:13] LABS: Reticulocyte % 1.7 % (0.5-2.0)
[2024-05-05 14:29] LABS: Basophils % 0.5 %; Hematocrit 37.7 % (36-47); Lymphocytes # 2.2 10^3/uL (0.8-4.8); Lymphocytes % 25.8 %; Mean Corpuscular HGB Conc 32.6 g/dL (30-55); Mean Corpuscular Hemoglobin 28.3 pg (27-33); Mean Corpuscular Volume 86.9 fl (85-98); Mean Platelet Volume 9.3 fL (7.4-10.4); Monocytes # 0.7 10^3/uL (0.2-0.9); Monocytes % 8.6 %; Neutrophils # 5.43 10^3/uL (1.8-7.7); Neutrophils % 64.7 %; Nucleated Red Blood Cells % 0 %; Platelet Count 435 10^3/cmm (157-399); Red Blood Count 4.34 10^6/uL (3.85-5.65); Red Cell Distribution Width 14.6 % (12.1-15.1); White Blood Count 8.38 10^3/uL (3.29-11.43)
[2024-05-05 14:32] LABS: Alanine Aminotransferase 15 U/L (0-33); Alkaline Phosphatase 91 U/L (35-105); Anion Gap 16.3 (5-19); Aspartate Amino Transferase 17 U/L (0-32); Blood Urea Nitrogen 22 mg/dL (8-23); Calcium 9.3 mg/dL (8.5-10.5); Carbon Dioxide 24 mmol/L (22-29); Chloride 99 mmol/L (98-107); Globulin 2.1 g/dL (1.3-4.6); Glucose 96 mg/dL (65-115); Lactate Dehydrogenase 211 U/L (135-214); Osmolality Calculated 283 mOsm/kg (285-295); Potassium 4.3 mmol/L (3.5-5.1); Sodium 135 mmol/L (136-145); Total Bilirubin 0.4 mg/dL (0.15-1.2); Total Protein 6.1 g/dL (6.6-8.7)
[2024-05-05 14:48] LABS: Ferritin 55 ng/mL (15-150); Iron 178 ug/dL (37-145); Total Iron Binding Capacity 287 mcg/dl; Unsaturated Iron Binding 109 ug/dL (112-347)
[2024-05-05 15:14] LABS: Folate Level 18.7 ng/mL (4.8-37.3)
[2024-05-05 16:12] LABS: Vitamin B12 > 2000 pg/mL (232-1245)
[2024-05-05 17:48] LABS: 25 Hydroxy Vitamin D 26 ng/mL (30-100)
[2024-05-08 10:09] LABS: Soluble Transferrin Receptor 1.71 mg/L (0.76-1.76)
== END 2024-05-15 23:59 | disposition home or self-care (01) ==
PROVIDERS: Nurse Practitioner; PCP Nurse Practitioner Family; Visit Provider Internal Medicine Hematology & Oncology
DX: D64.9 Anemia, unspecified (principal); M81.0 Age-related osteoporosis without current pathological fracture; R53.83 Other fatigue; Z72.0 Tobacco use; Z79.899 Other long term (current) drug therapy; Z71.6 Tobacco abuse counseling
CPT/HCPCS: 36415; 80053; 82306; 82607; 82728; 82746; 83540; 83550; 83615; 84238; 85025; 85045; 99214

== ENCOUNTER 2024-05-06 09:38 | Outpatient (CLI) | payer MEDICARE, SELFPAY ==
--- NOTE | 2024-05-06 09:40 | MM_ITS ---
WS: [id number] BILATERAL SCREENING DIGITAL TOMOSYNTHESIS MAMMOGRAM WITH CAD HISTORY: SCREENING COMPARISON: 10/03/2021, 09/05/2017 Bilateral CC and MLO views with tomosynthesis and synthetic mammography submitted. Computer aided det ection analyzed. Breast composition: The breasts are almost entirely fatty. No suspicious masses, microcalcifications or architectural distortion. MM/MM scr BI tomosynthesis [id number] IMPRESSION: BI-RADS: 1 - Negative. FOLLOW UP: 1 Year Follow-up
== END 2024-05-06 09:39 | disposition home or self-care (01) ==
LOC: MOBLMAM 09:41
PROVIDERS: PCP Nurse Practitioner Family; Visit Provider Nurse Practitioner Family
DX: Z12.31 Encounter for screening mammogram for malignant neoplasm of breast (principal); R92.313 Mammographic fatty tissue density, bilateral breasts
CPT/HCPCS: 77063; 77067

== ENCOUNTER 2024-05-16 06:30 | Outpatient (RCR) | payer MEDICARE, SELFPAY | END 2024-06-12 23:59 | disposition home or self-care (01) | LOC: TPT 06:30 | PROVIDERS: PCP Nurse Practitioner Family; Visit Provider Physician Assistant | DX: Z98.890 Other specified postprocedural states (principal) | CPT/HCPCS: 97110 ==

== ENCOUNTER → 2024-05-20 15:41 | Outpatient (BNVA) | payer MEDICARE, SELFPAY | PROVIDERS: PCP Nurse Practitioner Family; Visit Provider Physician Assistant | DX: Z98.890 Other specified postprocedural states (principal); R03.0 Elevated blood-pressure reading, without diagnosis of hypertension | CPT/HCPCS: 99213 ==

== ENCOUNTER → 2024-06-09 14:53 | Outpatient (BNVA) | payer MEDICARE, SELFPAY | PROVIDERS: Family Provider Nurse Practitioner Family; PCP Nurse Practitioner Family; Visit Provider Physician Assistant | DX: M17.0 Bilateral primary osteoarthritis of knee (principal) | CPT/HCPCS: 20610; 99213; J3301 ==

== ENCOUNTER 2024-06-13 06:30 | Outpatient (RCR) | payer MEDICARE, SELFPAY | END 2024-07-13 23:59 | disposition home or self-care (01) | LOC: TPT 06:30 | PROVIDERS: Family Provider Nurse Practitioner Family; PCP Nurse Practitioner Family; Visit Provider Physician Assistant | DX: Z98.890 Other specified postprocedural states (principal) | CPT/HCPCS: 97110 ==

== ENCOUNTER 2024-07-14 05:00 | Outpatient (RCR) | payer MEDICARE, SELFPAY | END 2024-08-12 23:59 | disposition home or self-care (01) | LOC: TPT 05:00 | PROVIDERS: Family Provider Nurse Practitioner Family; PCP Nurse Practitioner Family; Visit Provider Physician Assistant | DX: Z98.890 Other specified postprocedural states (principal) | CPT/HCPCS: 97110 ==

== ENCOUNTER 2024-08-03 12:04 | Oncology outpatient (recurring) (ONCR) | payer MEDICARE, SELFPAY ==
[2024-08-03 12:30] LABS: Basophils % 0.5 %; Hematocrit 34.8 % (36-47); Lymphocytes # 1.7 10^3/uL (0.8-4.8); Mean Corpuscular HGB Conc 32.2 g/dL (30-55); Mean Corpuscular Hemoglobin 28.9 pg (27-33); Mean Corpuscular Volume 89.7 fl (85-98); Mean Platelet Volume 8.9 fL (7.4-10.4); Monocytes # 0.7 10^3/uL (0.2-0.9); Monocytes % 8.3 %; Neutrophils # 5.85 10^3/uL (1.8-7.7); Nucleated Red Blood Cells % 0 %; Platelet Count 344 10^3/cmm (157-399); Red Blood Count 3.88 10^6/uL (3.85-5.65); Red Cell Distribution Width 14.2 % (12.1-15.1); White Blood Count 8.24 10^3/uL (3.29-11.43)
[2024-08-03 12:56] LABS: Alanine Aminotransferase 15 U/L (0-33); Albumin Level 4.3 g/dL (3.5-5.2); Alkaline Phosphatase 52 U/L (35-105); Anion Gap 14.6 (5-19); Aspartate Amino Transferase 16 U/L (0-32); Blood Urea Nitrogen 24 mg/dL (8-23); Calcium 8.9 mg/dL (8.5-10.5); Carbon Dioxide 23 mmol/L (22-29); Chloride 103 mmol/L (98-107); Creatinine Clr Calc Pharmacy 45.8377; Ferritin 69 ng/mL (15-150); Globulin 2.5 g/dL (1.3-4.6); Glucose 95 mg/dL (65-115); Iron 82 ug/dL (37-145); Osmolality Calculated 286 mOsm/kg (285-295); Potassium 4.6 mmol/L (3.5-5.1); Sodium 136 mmol/L (136-145); Total Bilirubin 0.5 mg/dL (0.15-1.2); Total Iron Binding Capacity 327 mcg/dl; Total Protein 6.8 g/dL (6.6-8.7); Unsaturated Iron Binding 245 ug/dL (112-347)
[2024-08-03 13:11] LABS: 25 Hydroxy Vitamin D 28 ng/mL (30-100); Vitamin B12 862 pg/mL (232-1245)
== END 2024-08-12 23:59 | disposition home or self-care (01) ==
PROVIDERS: Internal Medicine Medical Oncology; Family Provider Nurse Practitioner Family; PCP Nurse Practitioner Family; Visit Provider Internal Medicine Hematology & Oncology
DX: D64.9 Anemia, unspecified (principal); M81.0 Age-related osteoporosis without current pathological fracture; R53.83 Other fatigue; F17.210 Nicotine dependence, cigarettes, uncomplicated; Z79.899 Other long term (current) drug therapy
CPT/HCPCS: 36415; 80053; 82306; 82607; 82728; 83540; 83550; 85025; 99214

== ENCOUNTER → 2024-08-05 12:34 | Outpatient (BNVA) | payer MEDICARE, SELFPAY | PROVIDERS: Family Provider Nurse Practitioner Family; PCP Nurse Practitioner Family; Visit Provider Internal Medicine Cardiovascular Disease | DX: I10 Essential (primary) hypertension (principal); I08.0 Rheumatic disorders of both mitral and aortic valves; Z95.5 Presence of coronary angioplasty implant and graft; F17.210 Nicotine dependence, cigarettes, uncomplicated | CPT/HCPCS: 99204 ==

== ENCOUNTER → 2024-09-08 15:10 | Outpatient (BNVA) | payer MEDICARE, SELFPAY | PROVIDERS: Family Provider Nurse Practitioner Family; PCP Nurse Practitioner Family; Visit Provider Physician Assistant | DX: M17.0 Bilateral primary osteoarthritis of knee (principal) | CPT/HCPCS: 20610; 99213; J3301; J9999 ==

== ENCOUNTER 2024-11-02 11:42 | Oncology outpatient (recurring) (ONCR) | payer MEDICARE, SELFPAY ==
[2024-11-02 12:09] LABS: Hematocrit 34.0 % (36-47); Hemoglobin 11.40 g/dL (11.27-16.99); Mean Corpuscular HGB Conc 33.5 g/dL (30-55); Mean Corpuscular Hemoglobin 29.3 pg (27-33); Mean Corpuscular Volume 87.4 fl (85-98); Nucleated Red Blood Cells % 0 %; Platelet Count 358 10^3/cmm (157-399); Red Blood Count 3.89 10^6/uL (3.85-5.65); White Blood Count 8.53 10^3/uL (3.29-11.43)
[2024-11-02 12:28] LABS: Alanine Aminotransferase 10 U/L (0-33); Albumin Level 4.0 g/dL (3.5-5.2); Alkaline Phosphatase 55 U/L (35-105); Anion Gap 18.3 (5-19); Aspartate Amino Transferase 15 U/L (0-32); Blood Urea Nitrogen 12 mg/dL (8-23); Calcium 8.5 mg/dL (8.5-10.5); Carbon Dioxide 19 mmol/L (22-29); Chloride 103 mmol/L (98-107); Ferritin 79 ng/mL (15-150); Globulin 2.3 g/dL (1.3-4.6); Glucose 111 mg/dL (65-115); Iron 75 ug/dL (37-145); Osmolality Calculated 282 mOsm/kg (285-295); Potassium 4.3 mmol/L (3.5-5.1); Sodium 136 mmol/L (136-145); Total Iron Binding Capacity 279 mcg/dl; Total Protein 6.3 g/dL (6.6-8.7); Unsaturated Iron Binding 204 ug/dL (112-347)
[2024-11-02 12:44] LABS: Vitamin B12 913 pg/mL (232-1245)
== END 2024-11-12 23:59 | disposition home or self-care (01) ==
PROVIDERS: Internal Medicine Medical Oncology; Family Provider Nurse Practitioner Family; PCP Nurse Practitioner Family; Visit Provider Internal Medicine Hematology & Oncology
DX: D64.9 Anemia, unspecified (principal); M81.0 Age-related osteoporosis without current pathological fracture; E55.9 Vitamin D deficiency, unspecified; M25.50 Pain in unspecified joint; F17.210 Nicotine dependence, cigarettes, uncomplicated; R03.0 Elevated blood-pressure reading, without diagnosis of hypertension; I10 Essential (primary) hypertension; R10.32 Left lower quadrant pain; K59.00 Constipation, unspecified; Z79.899 Other long term (current) drug therapy
CPT/HCPCS: 36415; 80053; 82306; 82607; 82728; 82746; 83540; 83550; 85025; 99213

== ENCOUNTER → 2024-12-23 13:43 | Outpatient (BNVA) | payer MEDICARE, SELFPAY | PROVIDERS: Family Provider Nurse Practitioner Family; PCP Nurse Practitioner Family; Visit Provider Physician Assistant | DX: M17.0 Bilateral primary osteoarthritis of knee (principal); M81.0 Age-related osteoporosis without current pathological fracture; E55.9 Vitamin D deficiency, unspecified | CPT/HCPCS: 20610; 73560; 73565; 80053; 82306; 85025; 99213; J3301; J9999 ==

== ENCOUNTER → 2024-12-30 09:59 | Outpatient (BNVA) | payer MEDICARE, SELFPAY | PROVIDERS: Family Provider Nurse Practitioner Family; PCP Nurse Practitioner Family; Visit Provider Nurse Practitioner Family | DX: J02.9 Acute pharyngitis, unspecified (principal) | CPT/HCPCS: 87071; 87880 ==

== ENCOUNTER → 2025-01-13 11:18 | Outpatient (BNVA) | payer MEDICARE, SELFPAY | PROVIDERS: Family Provider Nurse Practitioner Family; PCP Nurse Practitioner Family; Visit Provider Nurse Practitioner Family | DX: R05.9 Cough, unspecified (principal); Q25.46 Tortuous aortic arch; M47.814 Spondylosis without myelopathy or radiculopathy, thoracic region; J98.4 Other disorders of lung | CPT/HCPCS: 71046 ==

== ENCOUNTER → 2025-01-26 16:16 | Outpatient (BNVA) | payer MEDICARE, SELFPAY | PROVIDERS: Family Provider Nurse Practitioner Family; PCP Nurse Practitioner Family; Visit Provider Internal Medicine Cardiovascular Disease | DX: I08.0 Rheumatic disorders of both mitral and aortic valves (principal); I25.10 Atherosclerotic heart disease of native coronary artery without angina pectoris; I10 Essential (primary) hypertension; F17.210 Nicotine dependence, cigarettes, uncomplicated | CPT/HCPCS: 99214 ==

== ENCOUNTER → 2025-03-22 11:19 | Outpatient (BNVA) | payer MEDICARE, SELFPAY | PROVIDERS: Family Provider Nurse Practitioner Family; PCP Nurse Practitioner Family; Visit Provider Internal Medicine | DX: J44.89 Other specified chronic obstructive pulmonary disease (principal); Z99.81 Dependence on supplemental oxygen; Z91.199 Patient's noncompliance with other medical treatment and regimen due to unspecified reason; Z87.01 Personal history of pneumonia (recurrent); F17.210 Nicotine dependence, cigarettes, uncomplicated | CPT/HCPCS: 99214; Q3014 ==

== ENCOUNTER 2025-03-31 14:03 | Outpatient (CLI) | payer MEDICARE, SELFPAY ==
[2025-03-31 14:32] LABS: Hematocrit 33.3 % (36-47); Hemoglobin 10.90 g/dL (11.27-16.99); Mean Corpuscular HGB Conc 32.7 g/dL (30-55); Mean Corpuscular Hemoglobin 28.8 pg (27-33); Mean Corpuscular Volume 88.1 fl (85-98); Nucleated Red Blood Cells % 0 %; Platelet Count 398 10^3/cmm (157-399); Red Blood Count 3.78 10^6/uL (3.85-5.65); White Blood Count 6.35 10^3/uL (3.29-11.43)
== END 2025-03-31 14:04 | disposition home or self-care (01) ==
PROVIDERS: Family Provider Nurse Practitioner Family; PCP Nurse Practitioner Family; Visit Provider Internal Medicine
DX: J44.9 Chronic obstructive pulmonary disease, unspecified (principal); M17.0 Bilateral primary osteoarthritis of knee
CPT/HCPCS: 20610; 36415; 85025; J3301; J9999

== ENCOUNTER → 2025-04-12 12:47 | Outpatient (BNVA) | payer MEDICARE, SELFPAY | PROVIDERS: Family Provider Nurse Practitioner Family; PCP Nurse Practitioner Family; Visit Provider Nurse Practitioner Family | DX: R10.9 Unspecified abdominal pain (principal) | CPT/HCPCS: 80053; 85025 ==